=== PATIENT | male | born 1985 | race Caucasian/White ===

== ENCOUNTER 2019-04-24 22:50 | Emergency (ER) | payer SELFPAY ==
[2019-04-25] MEDS ORDERED: hydrOXYzine HCl 25 MG TAB ONE (00:56)
--- NOTE | 2019-04-25 01:11 | ER ---
Nurse's Notes [facility] Name: Kal Carpenter Age: 34 yrs Sex: Male : 1985 Arrival Date: 04/24/2019 Time: 22:51 Bed 15 Private MD: Diagnosis: Presentation: 04/24 23:08 Presenting complaint: Patient states: i feel weird and shaky for months now. feels like rv there is something crawling on me, and I am having some delusions and hallucinations like shadows. denies any pain. Transition of care: patient was not received from another setting of care. Onset of symptoms was March 2019. Risk Assessment: Do you want to hurt yourself or someone else? Patient reports no desire to harm self or others. Initial Sepsis Screen: Does the patient meet any 2 criteria? No. Patient's initial sepsis screen is negative. Does the patient have a suspected source of infection? No. Patient's initial sepsis screen is negative. Care prior to arrival: None. 23:08 Method Of Arrival: Ambulatory rv 23:08 Acuity: GERMAN 3 rv Triage Assessment: 23:11 General: Appears in no apparent distress. uncomfortable, Behavior is restless. Pain: rv Denies pain. EENT: No signs and/or symptoms were reported regarding the EENT system. Neuro: Level of Consciousness is awake, alert, obeys commands, Oriented to person, place, time, situation. Cardiovascular: Patient's skin is warm and dry. Rhythm is sinus tachycardia. Respiratory: Airway is patent. GI: No signs and/or symptoms were reported involving the gastrointestinal system. : No signs and/or symptoms were reported regarding the genitourinary system. Derm: Skin is intact. Musculoskeletal: No signs and/or symptoms reported regarding the musculoskeletal system. Historical: - Allergies: 23:11 PENICILLINS; rv - Home Meds: 23:11 Adderall XR 30 mg Oral cp24 twice a day [Active]; alprazolam 1 mg Oral tab 1 tab 3 rv times per day [Active]; Hydrocodone-Acetaminophen Oral [Active]; - PMHx: 23:11 ADD/ADHD; Anxiety; chronic back pain; rv - PSHx: 23:11 None; rv - Immunization history:: Adult Immunizations not up to date. - Social history:: Smoking status: Patient uses tobacco products, smokes one pack cigarettes per day. - Ebola Screening: : No symptoms or risks identified at this time. Screenin:12 Abuse screen: Denies threats or abuse. Denies injuries from another. Nutritional rv screening: No deficits noted. Tuberculosis screening: No symptoms or risk factors identified. Fall Risk None identified. Assessment: 23:10 General: Appears in no apparent distress. comfortable, Behavior is calm, cooperative, aa1 appropriate for age, quiet. Pain: Denies pain. Neuro: Level of Consciousness is awake, alert, obeys commands, Oriented to person, place, time, situation, Moves all extremities. Gait is steady. Respiratory: Airway is patent Respiratory effort is even, unlabored, Respiratory pattern is regular, symmetrical. GI: No signs and/or symptoms were reported involving the gastrointestinal system. : No signs and/or symptoms were reported regarding the genitourinary system. EENT: No signs and/or symptoms were reported regarding the EENT system. Derm: Skin is intact, is healthy with good turgor, Skin is pink, warm \T\ dry. redness noted to neck where pt reports he was bitten by something. Musculoskeletal: Circulation, motion, and sensation intact. Capillary refill < 3 seconds. 23:56 Reassessment: Patient appears in no apparent distress at this time. Patient and/or aa1 family updated on plan of care and expected duration. Pain level reassessed. Patient is alert, oriented x 3, equal unlabored respirations, skin warm/dry/pink. Still awaiting initial assessment from [facility]. 04/25 00:55 Reassessment: Pt found to be eloped from exam room. Unable to locate within department, aa1 lobby or parking lot. notified. Vital Signs: 04/24 23:10 BP 170 / 112; Pulse 137; Resp 16; Temp 98.4(O); Pulse Ox 96% on R/A; Weight 90.72 kg; rv Height 6 ft. (182.88 cm); Pain 0/10; 04/25 00:00 BP 144 / 99; Pulse 113; Resp 18; Pulse Ox 100% on R/A; Pain 0/10; aa1 04/24 23:10 Body Mass Index 27.13 (90.72 kg, 182.88 cm) rv ED Course: 04/24 22:51 Patient arrived in ED. ds1 23:10 Triage completed. rv 23:12 Arm band placed on right wrist. Patient placed in the treatment room, on a stretcher, rv on pulse oximetry, Patient notified of wait time. 23:12 Patient has correct armband on for positive identification. Bed in low position. Call rv light in reach. Side rails up X 1. Pulse ox on. NIBP on. 23:56 Ioana Wells RN is Primary Nurse. aa1 04/25 00:06 Dileep Holt MD is Attending Physician. ps1 00:55 No provider procedures requiring assistance completed. Patient did not have IV access aa1 during this emergency room visit. Administered Medications: No medications were administered Outcome: 00:55 Eloped from patient exam room, after seeing physician Time discovered patient gone: aa1 April 25, 2019 at 00:55 01:10 Patient left the ED. aa1 Signatures: Ioana Wells RN RN aa1 Iris Gil ds1 Dileep Holt MD MD ps1 Ken Ponce RN RN rv Corrections: (The following items were deleted from the chart) 04/24 23:16 23:10 BP 170 / 112; Pulse 137bpm; Resp 16bpm; Pulse Ox 96% RA; 90.72 kg; Height 6 ft.; rv BMI: 27.1; Pain 0/10; rv
--- NOTE | 2019-04-25 01:11 | EDPHYS ---
Physician Documentation [facility] Name: Kal Carpenter Age: 34 yrs Sex: Male : 1985 Arrival Date: 04/24/2019 Time: 22:51 Bed 15 Private MD: ED Physician Dileep Holt HPI: 04/25 00:33 This 34 yrs old Male presents to ER via Ambulatory with complaints of Shaky, ps1 Feels like something biting on him. 00:33 patient states that he recently used drugs and now is complaining of being bit by ps1 insects. No fever. . Historical: - Allergies: 04/24 23:11 PENICILLINS; rv - Home Meds: 23:11 Adderall XR 30 mg Oral cp24 twice a day [Active]; alprazolam 1 mg Oral tab 1 tab 3 rv times per day [Active]; Hydrocodone-Acetaminophen Oral [Active]; - PMHx: 23:11 ADD/ADHD; Anxiety; chronic back pain; rv - PSHx: 23:11 None; rv - Immunization history:: Adult Immunizations not up to date. - Social history:: Smoking status: Patient uses tobacco products, smokes one pack cigarettes per day. - Ebola Screening: : No symptoms or risks identified at this time. ROS: 04/25 01:14 Constitutional: Negative for fever, chills, and weight loss, Eyes: Negative for injury, ps1 pain, redness, and discharge, Cardiovascular: Negative for chest pain, palpitations, and edema, Respiratory: Negative for shortness of breath, cough, wheezing, and pleuritic chest pain, Abdomen/GI: Negative for abdominal pain, nausea, vomiting, diarrhea, and constipation, MS/Extremity: Negative for injury and deformity. Skin: Positive for itching. Exam: 01:14 Constitutional: This is a well developed, well nourished patient who is awake, alert, ps1 and in no acute distress. Head/Face: Normocephalic, atraumatic. Eyes: Pupils equal round and reactive to light, extra-ocular motions intact. Lids and lashes normal. Conjunctiva and sclera are non-icteric and not injected. Chest/axilla: Normal chest wall appearance and motion. Nontender with no deformity. No lesions are appreciated. Cardiovascular: Regular rate and rhythm. No gallops, murmurs, or rubs. Normal PMI, no JVD. No pulse deficits. Respiratory: Lungs have equal breath sounds bilaterally, clear to auscultation and percussion. No rales, rhonchi or wheezes noted. No increased work of breathing, no retractions or nasal flaring. Abdomen/GI: Soft, non-tender, with normal bowel sounds. No distension or tympany. No guarding or rebound. No evidence of tenderness throughout. Skin: Warm, dry with normal turgor. Normal color with no rashes, no lesions, and no evidence of cellulitis. MS/ Extremity: Pulses equal, no cyanosis. Neurovascular intact. Full, normal range of motion. 01:14 Neuro: Orientation: is normal, Mentation: is normal, patient able to answer questions appropriately. . Vital Signs: 04/24 23:10 BP 170 / 112; Pulse 137; Resp 16; Temp 98.4(O); Pulse Ox 96% on R/A; Weight 90.72 kg; rv Height 6 ft. (182.88 cm); Pain 0/10; 04/25 00:00 BP 144 / 99; Pulse 113; Resp 18; Pulse Ox 100% on R/A; Pain 0/10; aa1 04/24 23:10 Body Mass Index 27.13 (90.72 kg, 182.88 cm) rv MDM: 01:16 Patient medically screened. ps1 Administered Medications: No medications were administered Disposition: 04/25/19 01:10 Patient left the facility after being seen by provider. - Patient left due to unknown. Signatures: Dispatcher [employer] Ioana James RN RN aa1 Dileep Holt MD MD ps1 Ken Ponce RN RN rv
[2019-04-25 01:33] VITALS: TEMP 98.4
[2019-04-25 01:34] VITALS: BP 144/99; O2SAT 100
== END 2019-04-25 01:10 | disposition left against medical advice (07) ==
LOC: ER 22:50
DX: L29.9 Pruritus, unspecified (principal); F17.210 Nicotine dependence, cigarettes, uncomplicated; F41.9 Anxiety disorder, unspecified; F90.9 Attention-deficit hyperactivity disorder, unspecified type; Z88.0 Allergy status to penicillin
CPT/HCPCS: 99284

== ENCOUNTER 2019-06-06 14:29 | Emergency (ER) | payer SELFPAY ==
[2019-06-06] MEDS ORDERED: NA CHLORIDE 0.9% 1,000 ML ONE ×2 (14:42→16:33)
[2019-06-06] MEDS ORDERED: DIAZEPAM 10 MG/2 ML INJ SYRINGE ONE ×2 (14:42→16:33)
[2019-06-06 15:02] LABS: Absolute Lymphocytes (CBC) 1.5 K/uL (0.7-4.9); Basophils % 0.2 % (0-1.3); Hematocrit 44.7 % (39.6-49.0); Lymphocytes % 18.6 % (15.3-44.8); MPV 9.1 fL (7.6-11.3); RBC Red Blood Cell Count 5.13 M/uL (4.33-5.43)
[2019-06-06 16:23] LABS: Potassium 3.9 mmol/L (3.5-5.1)
--- NOTE | 2019-06-06 17:29 | ER ---
Nurse's Notes [facility] Name: Kal Carpenter Age: 34 yrs Sex: Male : 1985 Arrival Date: 06/06/2019 Time: 14:32 Bed 8 Private MD: Diagnosis: Dehydration;Alcohol dependence with withdrawal, uncomplicated;Adverse effect of other psychostimulants Presentation: 06/06 14:27 Presenting complaint: EMS states: called out for a wellfare check by [facility], stated that sv pt was hallucinating and had taken 2 Adderral today and he was tachycardic. Pt was at [facility] making a police reports for someone breaking into his house. BP 170/100 HR-145, BS-135. Transition of care: patient was not received from another setting of care. Onset of symptoms was June 06, 2019. Risk Assessment: Do you want to hurt yourself or someone else? Patient reports no desire to harm self or others. Initial Sepsis Screen: Does the patient meet any 2 criteria? HR > 90 bpm. No. Patient's initial sepsis screen is negative. Does the patient have a suspected source of infection? No. Patient's initial sepsis screen is negative. 14:27 Method Of Arrival: EMS: [facility] sv 14:27 Acuity: GERMAN 2 sv 14:33 Care prior to arrival:. tw2 Triage Assessment: 14:30 General: Appears in no apparent distress. comfortable, well groomed, well developed, sv Behavior is calm, cooperative, appropriate for age, quiet. Pain: Denies pain. Neuro: Level of Consciousness is awake, alert, obeys commands, Oriented to person, place, time, situation, Moves all extremities. Full function Gait is steady, Speech is normal. Cardiovascular: Denies chest pain, lightheadedness, palpitations, shortness of breath, Patient's skin is warm and dry. Rhythm is sinus tachycardia. Respiratory: Airway is patent Respiratory effort is even, unlabored, Respiratory pattern is regular, symmetrical. Derm: Skin is intact, Skin is pink, warm \T\ dry. Skin temperature is warm. Musculoskeletal: Range of motion: intact in all extremities. Historical: - Allergies: 14:34 PENICILLINS; tw2 - Home Meds: 14:34 Adderall XR 30 mg Oral cp24 twice a day [Active]; alprazolam 1 mg Oral tab 1 tab 3 tw2 times per day [Active]; Hydrocodone-Acetaminophen Oral [Active]; - PMHx: 14:34 ADD/ADHD; Anxiety; chronic back pain; tw2 - PSHx: 14:34 None; tw2 - Immunization history:: Adult Immunizations. - Social history:: Smoking status: . - Ebola Screening: : Patient denies travel to an Ebola-affected area in the 21 days before illness onset. - Family history:: not pertinent. - Hospitalizations: : No recent hospitalization is reported. Screenin:32 Abuse screen: Denies threats or abuse. Nutritional screening: No deficits noted. tw2 Tuberculosis screening: No symptoms or risk factors identified. Fall Risk None identified. Assessment: 14:56 Reassessment: Patient appears in no apparent distress at this time. No changes from sv previously documented assessment. Patient and/or family updated on plan of care and expected duration. Pain level reassessed. Patient is alert, oriented x 3, equal unlabored respirations, skin warm/dry/pink. Pt reports having visual hallucinations where he sees like a haze or tracers, reports he has had them in the past and they just come and go. 15:51 Reassessment: Aniya from inside lab at the bedside to obtain recollect. sv 16:35 Reassessment: Patient appears in no apparent distress at this time. No changes from tw2 previously documented assessment. Patient and/or family updated on plan of care and expected duration. Pain level reassessed. Patient is alert, oriented x 3, equal unlabored respirations, skin warm/dry/pink. 16:38 Reassessment: Patient appears in no apparent distress at this time. No changes from sv previously documented assessment. Patient and/or family updated on plan of care and expected duration. Pain level reassessed. Patient is alert, oriented x 3, equal unlabored respirations, skin warm/dry/pink. 17:48 Reassessment: Patient appears in no apparent distress at this time. No changes from sv previously documented assessment. Patient and/or family updated on plan of care and expected duration. Pain level reassessed. Patient is alert, oriented x 3, equal unlabored respirations, skin warm/dry/pink. Vital Signs: 14:27 BP 136 / 111; Pulse 141; Resp 16; Temp 97.8; Pulse Ox 100% ; Weight 94.35 kg; Height 6 sv ft. 2 in. (187.96 cm); Pain 0/10; 15:04 BP 131 / 92; Pulse 140; Resp 20; Pulse Ox 99% ; sv 15:35 BP 134 / 98; Pulse 128; Resp 21; Pulse Ox 100% ; sv 16:35 BP 126 / 101; Pulse 122; Resp 21; Pulse Ox 100% on R/A; tw2 17:23 BP 127 / 92; Pulse 104; rn 17:32 BP 127 / 92; Pulse 102; Resp 15; Pulse Ox 99% ; sv 14:27 Body Mass Index 26.71 (94.35 kg, 187.96 cm) sv ED Course: 14:32 Patient arrived in ED. ss 14:32 Bed in low position. Call light in reach. dependency case manager on. Pulse ox on. NIBP on. tw2 provider at bedside at this time. 14:33 Arm band placed on. tw2 14:34 Darlyn Chawla RN is Primary Nurse. sv 14:35 Baldomero Villavicencio MD is Attending Physician. rn 14:43 Triage completed. sv 14:45 Inserted saline lock: 18 gauge in right antecubital area, using aseptic technique. sv Blood collected. Flushed right antecubital with 5 ml normal saline. 14:53 CBC with Diff Sent. sv 15:16 EKG done, by printing technician. reviewed by Baldomero Villavicencio MD. sm3 15:54 Lab(s) recollected, by rags laborer, sent to lab. sv 17:48 No provider procedures requiring assistance completed. IV discontinued, intact, ss bleeding controlled, No redness/swelling at site. Pressure dressing applied. 17:48 No provider procedures requiring assistance completed. IV discontinued, intact, sv bleeding controlled, No redness/swelling at site. Pressure dressing applied. Administered Medications: 14:52 Drug: Valium 10 mg Route: IVP; Site: right antecubital; sv 15:20 Follow up: Response: No adverse reaction sv 14:53 Drug: NS 0.9% 1000 ml Route: IV; Rate: 1000 ml; Site: right antecubital; sv 16:00 Follow up: Response: No adverse reaction; IV Status: Completed infusion; IV Intake: sv 1000ml 16:37 Drug: Valium 10 mg Route: IVP; Site: right antecubital; sv 17:30 Follow up: Response: No adverse reaction sv 16:37 Drug: NS 0.9% 1000 ml Route: IV; Rate: 1000 ml; Site: right antecubital; sv 17:30 Follow up: Response: No adverse reaction; IV Status: Completed infusion; IV Intake: sv 1000ml Intake: 16:00 IV: 1000ml; Total: 1000ml. sv 17:30 IV: 1000ml; Total: 2000ml. sv Outcome: 17:28 Discharge ordered by . rn 17:48 Discharged to home ambulatory. sv 17:48 Condition: stable 17:48 Discharge instructions given to patient, Instructed on discharge instructions, follow up and referral plans. Demonstrated understanding of instructions, follow-up care. 17:48 Discharged to home ambulatory. ss 17:48 Condition: good 17:48 Discharge instructions given to patient, Instructed on discharge instructions, follow up and referral plans. Demonstrated understanding of instructions, follow-up care. 17:49 Patient left the ED. ss Signatures: Darlyn Chawla RN RN Baldomero Villavicencio MD MD rn Smirch, Shelby, RN RN Shiloh Julio RN RN [facility] Geni Cordero 3
--- NOTE | 2019-06-06 17:29 | EDPHYS ---
Physician Documentation [facility] Name: Kal Carpenter Age: 34 yrs Sex: Male : 1985 Arrival Date: 06/06/2019 Time: 14:32 Bed 8 Private MD: ED Physician Baldomero Villavicencio HPI: 06/06 16:35 This 34 yrs old Male presents to ER via EMS with complaints of Tachycardia. rn 16:35 The patient presents with a history of heart racing. Context: The symptoms occur at rn rest. Onset: The symptoms/episode began/occurred at an unknown time. Modifying factors: The symptoms are aggravated by prescription medication, adderall. Severity of symptoms: At their worst the symptoms were mild in the emergency department the symptoms are unchanged. It is unknown whether or not the patient has had similar symptoms in the past. Reports takes 2 adderall daily, today took 2 like always does, reports went to police to file report, and noted to be acting strange, heart rate elevated, recommended to come to ER. Patient states feels "off" but doesn't feel heart racing. Denies other drug use. Not intentional overdose or to harm himself. reports chronic hallucinations but not command and denies suicidal/homicidal ideation. reports also daily drinker, last drink yesterday. . Historical: - Allergies: 14:34 PENICILLINS; tw2 - Home Meds: 14:34 Adderall XR 30 mg Oral cp24 twice a day [Active]; alprazolam 1 mg Oral tab 1 tab 3 tw2 times per day [Active]; Hydrocodone-Acetaminophen Oral [Active]; - PMHx: 14:34 ADD/ADHD; Anxiety; chronic back pain; tw2 - PSHx: 14:34 None; tw2 - Immunization history:: Adult Immunizations. - Social history:: Smoking status: . - Ebola Screening: : Patient denies travel to an Ebola-affected area in the 21 days before illness onset. - Family history:: not pertinent. - Hospitalizations: : No recent hospitalization is reported. ROS: 16:35 Constitutional: Negative for fever, chills, and weight loss, Eyes: Negative for injury, rn pain, redness, and discharge, Cardiovascular: Negative for chest pain, and edema, Respiratory: Negative for shortness of breath, cough, wheezing, and pleuritic chest pain, Abdomen/GI: Negative for abdominal pain, nausea, vomiting, diarrhea, and constipation, MS/Extremity: Negative for injury and deformity, Skin: Negative for injury, rash, and discoloration, Neuro: Negative for headache, numbness, tingling, and seizure, Psych: Negative for depression, suicide ideation, homicidal ideation Exam: 16:35 Constitutional: This is a well developed, well nourished patient who is awake, alert, rn and in no acute distress. Head/Face: Normocephalic, atraumatic. ENT: dry MM Neck: Trachea midline, no thyromegaly or masses palpated, and no cervical lymphadenopathy. Supple, full range of motion without nuchal rigidity, or vertebral point tenderness. No Meningismus. Cardiovascular: Tachycardic, regular, no murmur Respiratory: Lungs have equal breath sounds bilaterally, clear to auscultation. No increased work of breathing, no retractions or nasal flaring. Abdomen/GI: soft, non-tender MS/ Extremity: Pulses equal, no cyanosis. Neurovascular intact. Full, normal range of motion. Equal circumference. Neuro: Awake and alert, GCS 15, oriented to person, place, time, and situation. Cranial nerves II-XII grossly intact. Motor strength 5/5 in all extremities. Sensory grossly intact. Cerebellar exam normal. Vital Signs: 14:27 BP 136 / 111; Pulse 141; Resp 16; Temp 97.8; Pulse Ox 100% ; Weight 94.35 kg; Height 6 sv ft. 2 in. (187.96 cm); Pain 0/10; 15:04 BP 131 / 92; Pulse 140; Resp 20; Pulse Ox 99% ; sv 15:35 BP 134 / 98; Pulse 128; Resp 21; Pulse Ox 100% ; sv 16:35 BP 126 / 101; Pulse 122; Resp 21; Pulse Ox 100% on R/A; tw2 17:23 BP 127 / 92; Pulse 104; rn 17:32 BP 127 / 92; Pulse 102; Resp 15; Pulse Ox 99% ; sv 14:27 Body Mass Index 26.71 (94.35 kg, 187.96 cm) sv MDM: 14:35 Patient medically screened. rn 17:26 Differential diagnosis: arrythmia, dehydration, stress disorder, alcohol withdrawal, rn dehydration, stimulant use. Data reviewed: vital signs, nurses notes, lab test result(s), EKG, and as a result, I will discharge patient. Counseling: I had a detailed discussion with the patient and/or guardian regarding: the historical points, exam findings, and any diagnostic results supporting the discharge/admit diagnosis, lab results, radiology results, the need for outpatient follow up, to return to the emergency department if symptoms worsen or persist or if there are any questions or concerns that arise at home. Response to treatment: the patient's symptoms have markedly improved after treatment, patient is well hydrated. and as a result, I will discharge patient. Special discussion: I discussed with the patient/guardian in detail that at this point there is no indication for admission to the hospital. It is understood, however, that if the symptoms persist or worsen the patient needs to return immediately for re-evaluation. ED course: Pt feels better, most likely combination of dehydration/alcohol withdrawal/stimulant use. Improved with valium and fluids, will dc home. . 06/06 14:37 Order name: CBC with Diff rn 06/06 14:37 Order name: Basic Metabolic Panel; Complete Time: 17:29 rn 06/06 14:37 Order name: CBC with Automated Diff; Complete Time: 17:29 EDMS 06/06 14:37 Order name: IV Start; Complete Time: 14:53 rn 06/06 14:37 Order name: EKG; Complete Time: 14:38 rn 06/06 14:37 Order name: EKG - Nurse/Tech; Complete Time: 14:42 rn 06/06 14:38 Order name: EKG Electrocardiogram; Complete Time: 14:53 EDOK 06/06 15:14 Order name: Misc. Order: recollect green and blue top; Complete Time: 15:51 la1 06/06 15:46 Order name: Labs - recollect needed; Complete Time: 15:54 eb Administered Medications: 14:52 Drug: Valium 10 mg Route: IVP; Site: right antecubital; sv 15:20 Follow up: Response: No adverse reaction sv 14:53 Drug: NS 0.9% 1000 ml Route: IV; Rate: 1000 ml; Site: right antecubital; sv 16:00 Follow up: Response: No adverse reaction; IV Status: Completed infusion; IV Intake: sv 1000ml 16:37 Drug: Valium 10 mg Route: IVP; Site: right antecubital; sv 17:30 Follow up: Response: No adverse reaction sv 16:37 Drug: NS 0.9% 1000 ml Route: IV; Rate: 1000 ml; Site: right antecubital; sv 17:30 Follow up: Response: No adverse reaction; IV Status: Completed infusion; IV Intake: sv 1000ml Disposition: 06/06/19 17:28 Discharged to Home. Impression: Dehydration, Alcohol dependence with withdrawal, uncomplicated, Adverse effect of other psychostimulants. - Condition is Stable. - Discharge Instructions: Alcohol Withdrawal, Dehydration, Adult. - Medication Reconciliation Form, Thank You Letter, Antibiotic Education, Prescription Opioid Use form. - Follow up: Private Physician; When: As needed; Reason: Recheck today's complaints, Re-evaluation by your physician. - Problem is new. - Symptoms have improved. Signatures: Dispatcher [employer] EDMS Darlyn Chawla RN RN Baldomero Villavicencio MD MD rn Smirch, Shelby, RN RN Christopher Cotter RN RN la1 Shiloh Julio RN RN 2 Ermelinda Burkett Corrections: (The following items were deleted from the chart) 17:49 17:28 06/06/2019 17:28 Discharged to Home. Impression: Dehydration; Alcohol dependence ss with withdrawal, uncomplicated; Adverse effect of other psychostimulants. Condition is Stable. Forms are Medication Reconciliation Form, Thank You Letter, Antibiotic Education, Prescription Opioid Use. Follow up: Private Physician; When: As needed; Reason: Recheck today's complaints, Re-evaluation by your physician. Problem is new. Symptoms have improved. rn
[2019-06-06 19:14] VITALS: BP 127/92
[2019-06-06 19:15] VITALS: O2SAT 99
--- NOTE | 2019-06-07 11:59 | EKG ---
Test Date: 2019-06-06 Test Time: 14:43:36 Commercial Development Manager: GABBIE MEASUREMENT RESULTS: Intervals: Rate: 126 NM: 124 QRSD: 78 QT: 306 QTc: 443 [place]: P: 59 NM: 124 QRS: 61 T: 66 INTERPRETIVE STATEMENTS: Sinus tachycardia Otherwise normal ECG No previous ECG available for comparison Electronically Signed On 06-07-19 11:57:08 PANCAKE PROFESSIONAL by Andrew Salvador
== END 2019-06-06 17:49 | disposition home or self-care (01) ==
LOC: ER 14:29
DX: E86.0 Dehydration (principal); F10.230 Alcohol dependence with withdrawal, uncomplicated; T43.695A Adverse effect of other psychostimulants, initial encounter; F90.9 Attention-deficit hyperactivity disorder, unspecified type; F41.9 Anxiety disorder, unspecified; Z88.0 Allergy status to penicillin
CPT/HCPCS: 36415; 80048; 85025; 93005; 96361; 96374; 99284; J3360; J7030

== ENCOUNTER 2019-07-23 16:49 | Emergency (ER) | payer SELFPAY ==
[2019-07-23 17:40] LABS: Absolute Lymphocytes (CBC) 1.8 K/uL (0.7-4.9); Basophils % 0.5 % (0-1.3); Hematocrit 47.8 % (39.6-49.0); Lymphocytes % 31.9 % (15.3-44.8); MPV 8.5 fL (7.6-11.3); RBC Red Blood Cell Count 5.48 M/uL (4.33-5.43)
[2019-07-23 17:44] LABS: Protime INR 1.11
[2019-07-23 17:53] LABS: Barbiturates NEGATIVE (NEGATIVE); Benzodiazepines POSITIVE (NEGATIVE); Cocaine NEGATIVE (NEGATIVE); Methadone NEGATIVE (NEGATIVE); Opiates NEGATIVE (NEGATIVE); Phencyclidine NEGATIVE (NEGATIVE); THC Cannibis NEGATIVE (NEGATIVE)
[2019-07-23 17:54] LABS: METHAMPHETAM POSITIVE (NEGATIVE)
[2019-07-23 18:03] LABS: Urine Blood NEGATIVE (NEG); Urine Glucose NEGATIVE (NEG); Urine Protein NEGATIVE (NEG); Urine Specific Gravity 1.025 (1.005-1.030)
[2019-07-23 18:06] LABS: ALT/SGPT 30 U/L (12-78); AST/SGOT 11 U/L (15-37); Albumin 4.7 g/dL (3.4-5.0); Alkaline Phosphatase 80 U/L (45-117); BUN Blood Urea Nitrogen 11 mg/dL (7-18); Bicarbonate 28 mmol/L (21-32); Bilirubin Direct 0.2 mg/dL (0-0.2); Glucose Level 114 mg/dL (74-106); Potassium 3.4 mmol/L (3.5-5.1); Protein, Total 8.6 g/dL (6.4-8.2); Sodium Level 141 mmol/L (136-145)
--- NOTE | 2019-07-24 01:20 | ER ---
Nurse's Notes [facility] Name: Kal Carpenter Age: 34 yrs Sex: Male : 1985 Arrival Date: 07/23/2019 Time: 16:52 Bed 17 Private MD: None, None Diagnosis: Homicidal ideations Presentation: 07/23 17:05 Presenting complaint: Patient states: "I've been hearing and seeing things that are not aa5 there". Pt also reports shortness of breath. Denies recent illness, denies cough. Transition of care: patient was not received from another setting of care. Onset of symptoms was July 2019. Risk Assessment: Do you want to hurt yourself or someone else? Patient reports no desire to harm self or others. Initial Sepsis Screen: Does the patient meet any 2 criteria? HR > 90 bpm. Does the patient have a suspected source of infection? No. Patient's initial sepsis screen is negative. Care prior to arrival: None. 17:05 Acuity: GERMAN 3 aa5 17:05 Method Of Arrival: Ambulatory aa5 Historical: - Allergies: 17:07 PENICILLINS; aa5 - Home Meds: 17:07 Adderall XR 30 mg Oral cp24 twice a day [Active]; Xanax 1 mg Oral tab twice a day aa5 [Active]; - PMHx: 17:07 ADD/ADHD; Anxiety; chronic back pain; aa5 - PSHx: 17:07 None; aa5 - Immunization history:: Flu vaccine is not up to date. - Social history:: Smoking status: Patient/guardian denies using tobacco, Patient/guardian denies using street drugs. - Ebola Screening: : No symptoms or risks identified at this time. Screenin:53 Abuse screen: Denies threats or abuse. Denies injuries from another. Nutritional aj1 screening: No deficits noted. Tuberculosis screening: No symptoms or risk factors identified. Assessment: 17:53 General: Appears in no apparent distress. uncomfortable, Behavior is calm, cooperative, aj1 appropriate for age. Pain: Denies pain. Neuro: Level of Consciousness is awake, alert, obeys commands, Oriented to person, place, time, situation. Cardiovascular: Patient's skin is warm and dry. Respiratory: Airway is patent Respiratory effort is even, unlabored, Respiratory pattern is regular, symmetrical. GI: No signs and/or symptoms were reported involving the gastrointestinal system. : No signs and/or symptoms were reported regarding the genitourinary system. EENT: No signs and/or symptoms were reported regarding the EENT system. Derm: No signs and/or symptoms reported regarding the dermatologic system. Skin is pink, warm \\T\\ dry. normal. Musculoskeletal: No signs and/or symptoms reported regarding the musculoskeletal system. Circulation, motion, and sensation intact. 18:33 Reassessment: Patient appears in no apparent distress at this time. No changes from aj1 previously documented assessment. Patient and/or family updated on plan of care and expected duration. Pain level reassessed. Patient is alert, oriented x 3, equal unlabored respirations, skin warm/dry/pink. 19:34 Reassessment: Patient appears in no apparent distress at this time. No changes from aj1 previously documented assessment. Patient and/or family updated on plan of care and expected duration. Pain level reassessed. Patient is alert, oriented x 3, equal unlabored respirations, skin warm/dry/pink. 20:30 Reassessment: Patient and/or family updated on plan of care and expected duration. Pain aj1 level reassessed. General: Appears in no apparent distress. comfortable, Behavior is calm, cooperative, appropriate for age. Pain: Denies pain. Neuro: Level of Consciousness is awake, alert, obeys commands, Oriented to person, place, time, situation. Cardiovascular: Patient's skin is warm and dry. Respiratory: Airway is patent Respiratory effort is even, unlabored, Respiratory pattern is regular, symmetrical. GI: No signs and/or symptoms were reported involving the gastrointestinal system. : No signs and/or symptoms were reported regarding the genitourinary system. EENT: No signs and/or symptoms were reported regarding the EENT system. Derm: No signs and/or symptoms reported regarding the dermatologic system. Skin is pink, warm \\T\\ dry. normal. Musculoskeletal: No signs and/or symptoms reported regarding the musculoskeletal system. Circulation, motion, and sensation intact. 21:42 Reassessment: Patient appears in no apparent distress at this time. No changes from aj1 previously documented assessment. Patient and/or family updated on plan of care and expected duration. Pain level reassessed. Patient is alert, oriented x 3, equal unlabored respirations, skin warm/dry/pink. 22:34 Reassessment: patient wanted to leave the ER. Jose talked to him and was able to lead rv the patient back to the examination room. 23:30 Reassessment: mental health officer is evaluating the patient. rv 07/24 01:00 Reassessment: Patient appears in no apparent distress at this time. Patient and/or family updated on plan of care and expected duration. Pain level reassessed. Patient is alert, oriented x 3, equal unlabored respirations, skin warm/dry/pink. Pt checked for personal belonging, one pocket knife was recovered for safekeeping. 02:10 Reassessment: Patient appears in no apparent distress at this time. No changes from previously documented assessment. Patient and/or family updated on plan of care and expected duration. Pain level reassessed. Patient is alert, oriented x 3, equal unlabored respirations, skin warm/dry/pink. Pt sleeping well no signs of distress noted. 03:20 Reassessment: Patient appears in no apparent distress at this time. No changes from previously documented assessment. Patient and/or family updated on plan of care and expected duration. Pain level reassessed. Patient is alert, oriented x 3, equal unlabored respirations, skin warm/dry/pink. Pt sleeping well no signs of distress noted. 04:46 Reassessment: Patient appears in no apparent distress at this time. No changes from previously documented assessment. Patient and/or family updated on plan of care and expected duration. Pain level reassessed. Patient is alert, oriented x 3, equal unlabored respirations, skin warm/dry/pink. Pt sleeping well no signs of distress noted. Nurse to Nurse with Fr[facility] from [facility]. 07:15 Reassessment: Patient appears in no apparent distress at this time. Patient and/or em family updated on plan of care and expected duration. Pain level reassessed. Patient is alert, oriented x 3, equal unlabored respirations, skin warm/dry/pink. pt turned over knife he had on self, knife labeled with pt ID and give to security, pt given instructions to hop picker knife after evaluated by MH. 08:20 Reassessment: Patient appears in no apparent distress at this time. report given to em EMS. Vital Signs: 07/23 17:07 BP 166 / 110; Pulse 128; Resp 18 S; Temp 98.3(O); Pulse Ox 99% on R/A; Weight 90.72 kg aa5 (R); Height 6 ft. 2 in. (187.96 cm) (R); Pain 0/10; 17:47 BP 139 / 98; Pulse 112; Resp 18; Pulse Ox 100% on R/A; aj1 18:34 BP 129 / 90; Pulse 114; Resp 20; Pulse Ox 100% on R/A; aj1 19:34 BP 131 / 92; Pulse 96; Resp 18; Pulse Ox 100% on R/A; aj1 21:12 BP 124 / 88; Pulse 101; Resp 20; Pulse Ox 100% on R/A; aj1 07/24 00:00 BP 127 / 86; Pulse 98; Resp 18; Pulse Ox 99% on R/A; rv 07/23 17:07 Body Mass Index 25.68 (90.72 kg, 187.96 cm) aa5 ED Course: 07/23 16:52 Patient arrived in ED. mr 16:52 None, None is Private Physician. mr 17:05 Arm band placed on. aa5 17:06 Triage completed. aa5 17:20 Sally Greenwood, RN is Primary Nurse. aj1 17:25 Initial lab(s) drawn, by me, sent to lab. Urine collected: clean catch specimen, clear, jp3 maia colored, Legal drug screen obtained per protocol. Inserted saline lock: 20 gauge in right antecubital area, using aseptic technique. Blood collected. 17:29 Patient maintains SpO2 saturation greater than 95% on room air. jp3 17:30 Bed in low position. Call light in reach. Side rails up X 1. Verbal reassurance given. jp3 Pulse ox on. NIBP on. 17:37 Elian Gómez MD is Attending Physician. tw4 17:42 EKG done, by ED staff, reviewed by Elian Gómez MD. jp3 17:53 No provider procedures requiring assistance completed. aj1 22:03 Report given to DEE Delgado. aj1 07/24 03:45 Report received from Carlton Ponce RN. 05:36 Attending Physician role handed off by Elian Gómez MD rn 05:36 Baldomero Villavicencio MD is Attending Physician. rn 08:28 IV discontinued, intact, bleeding controlled, No redness/swelling at site. Pressure em dressing applied. Administered Medications: No medications were administered Outcome: 01:19 ER care complete, transfer ordered by . rn 08:27 Transferred by ground EMS Transfer form completed. Note: [facility] em 08:27 Condition: good 08:27 Instructed on the need for transfer, Demonstrated understanding of instructions. 08:29 Patient left the ED. em Signatures: Sally Greenwood RN RN aj1 Ciera Jackson mr Andrea Austin RN RN Baldomero Petersen MD MD rn Calderon, Audri, RN RN aa5 Marianne Birch Terrence, MD MD tw4 Ken Ponce RN RN Juan Coto jp3 Corrections: (The following items were deleted from the chart) 04:46 04:41 Reassessment: [facility]
--- NOTE | 2019-07-24 01:20 | EDPHYS ---
Physician Documentation [facility] Name: Kal Carpenter Age: 34 yrs Sex: Male : 1985 Arrival Date: 07/23/2019 Time: 16:52 Bed 17 Private MD: None, None ED Physician Baldomero Villavicencio HPI: 07/23 21:30 This 34 yrs old Male presents to ER via Ambulatory with complaints of tw4 Hallucinations. 21:30 The patient presents to the emergency department with anxiety, over unknown tw4 circumstances, homicidal ideation, the patient has harmed or wants to harm a friend, Plan? wants to shoot. 21:31 The patient presents to the emergency department with psychosis, has experienced tw4 auditory hallucinations, has experienced visual hallucinations. 21:31 Onset: The symptoms/episode began/occurred last week. Past psychiatric history: Prior tw4 diagnosis: no previous psychiatric diagnosis known. Past psychiatric history: Prior diagnosis: addiction history. Associated signs and symptoms: The patient has no apparent associated signs or symptoms. The patient has not experienced similar symptoms in the past. Historical: - Allergies: 17:07 PENICILLINS; aa5 - Home Meds: 17:07 Adderall XR 30 mg Oral cp24 twice a day [Active]; Xanax 1 mg Oral tab twice a day aa5 [Active]; - PMHx: 17:07 ADD/ADHD; Anxiety; chronic back pain; aa5 - PSHx: 17:07 None; aa5 - Immunization history:: Flu vaccine is not up to date. - Social history:: Smoking status: Patient/guardian denies using tobacco, Patient/guardian denies using street drugs. - Ebola Screening: : No symptoms or risks identified at this time. ROS: 21:31 Constitutional: Negative for fever, chills, and weight loss, Eyes: Negative for injury, tw4 pain, redness, and discharge, Cardiovascular: Negative for chest pain, palpitations, and edema, Respiratory: Negative for shortness of breath, cough, wheezing, and pleuritic chest pain, Abdomen/GI: Negative for abdominal pain, nausea, vomiting, diarrhea, and constipation, Back: Negative for injury and pain, MS/Extremity: Negative for injury and deformity, Skin: Negative for injury, rash, and discoloration, Neuro: Negative for headache, weakness, numbness, tingling, and seizure. 21:31 Psych: Positive for anxiety, homicidal ideation, Negative for depression, drug dependence, alcohol dependence. Exam: 21:31 Constitutional: This is a well developed, well nourished patient who is awake, alert, tw4 and in no acute distress. Head/Face: Normocephalic, atraumatic. Chest/axilla: Normal chest wall appearance and motion. Nontender with no deformity. No lesions are appreciated. Cardiovascular: Regular rate and rhythm with a normal S1 and S2. No gallops, murmurs, or rubs. Normal PMI, no JVD. No pulse deficits. Respiratory: Lungs have equal breath sounds bilaterally, clear to auscultation and percussion. No rales, rhonchi or wheezes noted. No increased work of breathing, no retractions or nasal flaring. Abdomen/GI: Soft, non-tender, with normal bowel sounds. No distension or tympany. No guarding or rebound. No evidence of tenderness throughout. Back: No spinal tenderness. No costovertebral tenderness. Full range of motion. MS/ Extremity: Pulses equal, no cyanosis. Neurovascular intact. Full, normal range of motion. Neuro: Awake and alert, GCS 15, oriented to person, place, time, and situation. Cranial nerves II-XII grossly intact. Motor strength 5/5 in all extremities. Sensory grossly intact. Cerebellar exam normal. Normal gait. 21:31 Psych: Behavior/mood is pleasant, Affect is flat, Oriented to person, place, time, Patient having thoughts of homicide. Homicidal plan is to shoot friend with a gun Judgement / Insight is impaired. Vital Signs: 17:07 BP 166 / 110; Pulse 128; Resp 18 S; Temp 98.3(O); Pulse Ox 99% on R/A; Weight 90.72 kg aa5 (R); Height 6 ft. 2 in. (187.96 cm) (R); Pain 0/10; 17:47 BP 139 / 98; Pulse 112; Resp 18; Pulse Ox 100% on R/A; aj1 18:34 BP 129 / 90; Pulse 114; Resp 20; Pulse Ox 100% on R/A; aj1 19:34 BP 131 / 92; Pulse 96; Resp 18; Pulse Ox 100% on R/A; aj1 21:12 BP 124 / 88; Pulse 101; Resp 20; Pulse Ox 100% on R/A; aj1 07/24 00:00 BP 127 / 86; Pulse 98; Resp 18; Pulse Ox 99% on R/A; rv 07/23 17:07 Body Mass Index 25.68 (90.72 kg, 187.96 cm) aa5 MDM: 07/23 17:37 Patient medically screened. tw4 21:33 Differential diagnosis: drug withdrawal. acute psychotic break, depression, psychosis tw4 secondary to non-compliance. Data reviewed: vital signs, nurses notes. Data interpreted: hall monitor: not applicable for this patient encounter. Pulse oximetry: Interpretation: normal. Counseling: I had a detailed discussion with the patient and/or guardian regarding: the historical points, exam findings, and any diagnostic results supporting the discharge/admit diagnosis, lab results. Awaiting: transfer to another facility. 07/24 00:49 ED course: Mental health deputy arrived, filled out HUY, was evaluated by [facility] er rn and recommended transfer for homicidal ideations. Pleasant here, stable vitals. . 07/23 17:17 Order name: Acetaminophen; Complete Time: 18:33 [facility] 07/23 17:17 Order name: Basic Metabolic Panel; Complete Time: 18:33 [facility] 07/23 17:17 Order name: CBC with Diff; Complete Time: 18:33 [facility] 07/23 17:17 Order name: ETOH Level; Complete Time: 18:33 [facility] 07/23 17:17 Order name: Hepatic Function; Complete Time: 18:33 [facility] 07/23 17:17 Order name: PT-INR; Complete Time: 18:33 [facility] 07/23 17:17 Order name: Ptt, Activated; Complete Time: 18:33 [facility] 07/23 17:17 Order name: Salicylate; Complete Time: 00:50 [facility] 07/23 17:17 Order name: Urine Drug Screen; Complete Time: 18:33 [facility] 07/23 17:17 Order name: EKG; Complete Time: 17:18 [facility] 07/23 17:17 Order name: EKG - Nurse/Tech; Complete Time: 17:31 [facility] 07/23 17:17 Order name: IV Saline Lock; Complete Time: 17:31 [facility] 07/23 17:17 Order name: Labs collected and sent; Complete Time: 17:30 [facility] 07/23 17:50 Order name: Urine Dipstick--Ancillary (enter results); Complete Time: 18:33 bd 07/23 17:17 Order name: Urine Dipstick-Ancillary (obtain specimen); Complete Time: 17:30 [facility] Administered Medications: No medications were administered Disposition: 07/24/19 01:19 Transfer ordered to Psych Facility. Diagnosis is Homicidal ideations. - Reason for transfer: Higher level of care. - Accepting physician is Dr. Jones. - Condition is Fair. - Problem is an ongoing problem. - Symptoms are unchanged. Signatures: Dispatcher [employer] EDMS Ravi Casillas PA PA Andrea Joshua, RN Baldomero Erickson MD MD rn Calderon, Audri, RN RN aa5 Elian Gómez MD MD tw4 Corrections: (The following items were deleted from the chart) 05:36 01:19 07/24/2019 01:19 Transfer ordered to Psych Facility. Diagnosis is Homicidal rn ideations. Reason for transfer: Higher level of care. Accepting physician is . Condition is Fair. Problem is an ongoing problem. Symptoms are unchanged. rn 08:29 05:36 07/24/2019 01:19 Transfer ordered to Psych Facility. Diagnosis is Homicidal em ideations. Reason for transfer: Higher level of care. Accepting physician is Dr. Jones. Condition is Fair. Problem is an ongoing problem. Symptoms are unchanged. rn
[2019-07-24 08:44] VITALS: TEMP 98.3
[2019-07-24 08:51] VITALS: BP 127/86; O2SAT 99
--- NOTE | 2019-07-24 14:40 | EKG ---
Test Date: 2019-07-23 Test Time: 17:36:13 Telephone Clerk Telegraph Office: MARQUES MEASUREMENT RESULTS: Intervals: Rate: 113 NE: 130 QRSD: 80 QT: 332 QTc: 455 [place]: P: 65 NE: 130 QRS: 70 T: 66 INTERPRETIVE STATEMENTS: Sinus tachycardia Otherwise normal ECG Compared to ECG 06/06/2019 14:43:36 No significant changes Electronically Signed On 07-24-19 14:39:06 SOLUTIONS ENGINEER by Arthur Hardwick
== END 2019-07-24 08:29 ==
LOC: ER 16:49
DX: R45.850 Homicidal ideations (principal); F90.9 Attention-deficit hyperactivity disorder, unspecified type; F41.9 Anxiety disorder, unspecified; Z88.0 Allergy status to penicillin
CPT/HCPCS: 36415; 80048; 80076; 80307; 80320; 80329; 81003; 85025; 85610; 85730; 93005; 99285

== ENCOUNTER 2020-01-31 20:51 | Emergency (ER) | payer SELFPAY ==
--- OUTSIDE RECORDS SUMMARY | 2020-01-31 20:54 | XMS REPORT | Continuity of Care Document ---
:1985 Author Organization [facility] t Address [address] [place] [address] Care Team Providers Name Role Phone Unavailable Unavailable Unavailable Problems This patient has no known problems. Allergies, Adverse Reactions, Alerts This patient has no known allergies or adverse reactions. Medications This patient has no known medications. Procedures This patient has no known procedures. Results Test Description Test Time Test Comments Results Result [facility] e Comments XR Chest 1 View 2019-08-02 Patient: Linus FLORES 14:27:18 THERESE ROBINS Date/Time08/02/2019 14:19 CSTReason for ExamCoughReportCHEST 1 VIEWCLINICAL INFORMATION: CoughCOMPARISON: NoneFINDINGS:The lungs are well-expanded and clear. No airspace consolidation is seen. No pneumothorax or pleural effusion is present. The cardiac silhouette is normal in size. The bones are grossly intact.IMPRESSION:No acute cardiopulmonary finding.LOCATION: R16 Final Dictated by: MD Pickering Adam FDictated DT/TM: 08/02/2019 2:26 pmSigned by: MD Pickering Adam FSigned (Electronic Signature): 08/02/2019 2:27 pm RPR Qualitative 2019-07-25 12:03:23 Test Item Value Reference Range Interpretation Comme nts RPR Qual (test code = RPR Qual) Non-Reactive Non-Reactive Reactive Control (test code = Reactive Control) Reactive Weak Reactive Control (test code = Weak Reactive Weak Reactive Control) Non-Reactive Control (test code = Non-Reactive Non-Reactive Control) Lot # (test code = Lot #) [id number] Expiration Dt (test code = Expiration Dt) 05-16-20 N Thyroid Stimulating [id number] 07:16:59 Test Item Value Reference Range Interpretation Comments TSH (test code = TSH) 0.821 mIU/mL 0.270-4.200 Lipid [id number] 07:13:24 Test Item Value Reference Range Interpretation Comments Cholesterol Total 153 mg/dL 0-200 RISK OF HE ART (test code = DISEASEPublishe d by Cholesterol Total) [place] Tabatha lyte Optimal Borderl ine Increased RiskC HOL <200 200-239 >2 40TRIG <150 150-199 >2 00HDL Male >60 <40H DL Female >60 <5 0LDL <100 130-159 >1 60LDL Near optimal is 100-129 Triglycerides (test 105 mg/dL 9-200 code = Triglycerides) HDL (test code = HDL) 34 mg/dL 40-60 L LDL (test code = LDL) 98 mg/dL 0-130 The eq uation being used in this calcula tion is LDL = (Chol - H DL) - (Trig / 5) VLDL (test code = 21 mg/dL 5-40 The equati on being used VLDL) in this calcula tion is VLDL = Trig / 5 Chol/HDL (test code = 4.5 ratio 0.0-5.0 Chol/HDL) LDL/HDL Ratio (test 3 N The equa tion being used code = LDL/HDL Ratio) in thi s calculation is LDL/HDL Ratio=L DL Calc/HDL Chol
[2020-01-31 21:50] LABS: Urine Blood NEGATIVE (NEG); Urine Glucose NEGATIVE (NEG); Urine Protein NEGATIVE (NEG); Urine Specific Gravity >1.030 (1.005-1.030); Urine pH 5.5 (5.0-7.0)
[2020-01-31 21:52] LABS: Absolute Lymphocytes (CBC) 2.1 K/uL (0.7-4.9); Basophils % 0.3 % (0-1.3); MPV 7.9 fL (7.6-11.3); RBC Red Blood Cell Count 4.66 M/uL (4.33-5.43)
[2020-01-31 21:55] LABS: Protime INR 1.05
[2020-01-31 22:02] LABS: Barbiturates NEGATIVE (NEGATIVE); Benzodiazepines NEGATIVE (NEGATIVE); Cocaine NEGATIVE (NEGATIVE); METHAMPHETAM NEGATIVE (NEGATIVE); Methadone NEGATIVE (NEGATIVE); Opiates NEGATIVE (NEGATIVE); Phencyclidine NEGATIVE (NEGATIVE); THC Cannibis POSITIVE (NEGATIVE)
[2020-01-31] MEDS ORDERED: NA CHLORIDE 0.9% 1,000 ML ONE (22:09)
[2020-01-31 22:16] LABS: ALT/SGPT 34 U/L (12-78); AST/SGOT 15 U/L (15-37); Albumin 4.1 g/dL (3.4-5.0); Alkaline Phosphatase 63 U/L (45-117); BUN Blood Urea Nitrogen 16 mg/dL (7-18); Bicarbonate 25 mmol/L (21-32); Bilirubin Direct < 0.1 mg/dL (0-0.2); Bilirubin Total 0.4 mg/dL (0.2-1.0); Glucose Level 91 mg/dL (74-106); Potassium 3.4 mmol/L (3.5-5.1); Protein, Total 6.9 g/dL (6.4-8.2); Sodium Level 143 mmol/L (136-145)
[2020-02-01] MEDS ORDERED: NA CHLORIDE 0.9% 1,000 ML ONE (00:26)
--- NOTE | 2020-02-01 00:52 | EDPHYS ---
Physician Documentation [facility] Name: Kal Carpenter Age: 34 yrs Sex: Male : 1985 Arrival Date: 01/31/2020 Time: 20:56 Bed 5 Private MD: ED Physician Levi Payton HPI: 01/30 22:17 This 34 yrs old Male presents to ER via EMS with complaints of Shortness Of jr8 Breath. 22:17 Onset: The symptoms/episode began/occurred acutely, today. Duration: The symptoms are jr8 continuous, but are steadily getting better. The patient's shortness of breath has no apparent modifying factors. Associated signs and symptoms: Pertinent positives: This patient does not have any pertinent positive signs or symptoms associated with shortness of breath. Severity of symptoms: At their worst the symptoms were moderate in the emergency department the symptoms have improved. It is unknown whether or not the patient has had similar symptoms in the past. The patient has not recently seen a physician. Patient stated that he smoked an old cigarette, a joint, and then took an old respirodal. Stated that the started to feel like his throat was closing and felt short of breath. Started to walk to hospital but collapsed. Feeling better now. Stated that he has also been hearing things for several years . Historical: - Allergies: 21:01 PENICILLINS; ea - Home Meds: 21:01 Xanax 1 mg Oral tab twice a day [Active]; alprazolam 1 mg Oral tab 1 tab 3 times per ea day [Active]; Adderall XR 30 mg oral cp24 [Active]; - PMHx: 21:01 chronic back pain; Anxiety; ADD/ADHD; ea - PSHx: 21:01 None; ea - Immunization history:: Adult Immunizations up to date. - Social history:: Smoking status: unknown. ROS: 22:17 Eyes: Negative for injury, pain, redness, and discharge, ENT: Negative for injury, jr8 pain, and discharge, Neck: Negative for injury, pain, and swelling, Cardiovascular: Negative for chest pain, palpitations, and edema, Abdomen/GI: Negative for abdominal pain, nausea, vomiting, diarrhea, and constipation, Back: Negative for injury and pain, MS/Extremity: Negative for injury and deformity, Skin: Negative for injury, rash, and discoloration, Neuro: Negative for headache, weakness, numbness, tingling, and seizure. 22:17 Respiratory: Positive for cough, shortness of breath. 22:17 Psych: Positive for auditory hallucinations. Exam: 22:17 Eyes: Pupils equal round and reactive to light, extra-ocular motions intact. Lids and jr8 lashes normal. Conjunctiva and sclera are non-icteric and not injected. Cornea within normal limits. Periorbital areas with no swelling, redness, or edema. ENT: Nares patent. No nasal discharge, no septal abnormalities noted. Tympanic membranes are normal and external auditory canals are clear. Oropharynx with no redness, swelling, or masses, exudates, or evidence of obstruction, uvula midline. Mucous membranes moist. Neck: Trachea midline, no thyromegaly or masses palpated, and no cervical lymphadenopathy. Supple, full range of motion without nuchal rigidity, or vertebral point tenderness. No Meningismus. Cardiovascular: Regular rate and rhythm with a normal S1 and S2. No gallops, murmurs, or rubs. Normal PMI, no JVD. No pulse deficits. Respiratory: Lungs have equal breath sounds bilaterally, clear to auscultation and percussion. No rales, rhonchi or wheezes noted. No increased work of breathing, no retractions or nasal flaring. Abdomen/GI: Soft, non-tender, with normal bowel sounds. No distension or tympany. No guarding or rebound. No evidence of tenderness throughout. Back: No spinal tenderness. No costovertebral tenderness. Full range of motion. Skin: Warm, dry with normal turgor. Normal color with no rashes, no lesions, and no evidence of cellulitis. MS/ Extremity: Pulses equal, no cyanosis. Neurovascular intact. Full, normal range of motion. Neuro: Awake and alert, GCS 15, oriented to person, place, time, and situation. Cranial nerves II-XII grossly intact. Motor strength 5/5 in all extremities. Sensory grossly intact. Cerebellar exam normal. Normal gait. Psych: Awake, alert, with orientation to person, place and time. Behavior, mood, and affect are within normal limits. Not suicidal or homicidal. Currently not hearing voices or seeing things 01/31 00:05 ECG was reviewed by the Attending Physician. [facility] Vital Signs: 01/30 20:58 BP 158 / 107; Pulse 112; Resp 18; Temp 98.7; Pulse Ox 100% ; ea 21:50 BP 141 / 105; Pulse 111; Resp 18; Pulse Ox 98% on R/A; ea 23:01 BP 140 / 94; Pulse 88; Resp 18; Pulse Ox 98% ; ea 01/31 00:09 BP 124 / 96; Pulse 98; Resp 16; Pulse Ox 97% ; ea 02:30 BP 128 / 90; Pulse 98; Resp 18; Pulse Ox 99% ; ea 04:00 BP 127 / 96; Pulse 85; Resp 18; Pulse Ox 98% ; ea 05:18 BP 127 / 73; Pulse 90; Resp 18; Pulse Ox 98% on R/A; ea 06:21 BP 99 / 64; Pulse 88; Resp 16; Pulse Ox 98% on R/A; ea MDM: 01/30 21:10 Patient medically screened. 01/31 00:49 Data reviewed: vital signs, nurses notes, lab test result(s), and as a result, I will [facility] discharge patient. Data interpreted: Pulse oximetry: on room air is 97 %. Interpretation: normal. Counseling: I had a detailed discussion with the patient and/or guardian regarding: the historical points, exam findings, and any diagnostic results supporting the discharge/admit diagnosis, lab results, the need for outpatient follow up, a psychiatrist, to return to the emergency department if symptoms worsen or persist or if there are any questions or concerns that arise at home. ED course: Patient hemodynamically stable. Feeling better. Will d/c home to f/u with psychiatry. Will give info for [facility] as immediate evaluation is not necessitated at this time . 01/30 21:10 Order name: Acetaminophen; Complete Time: 22:21 01/30 21:10 Order name: Basic Metabolic Panel; Complete Time: 22:21 01/30 21:10 Order name: CBC with Diff; Complete Time: 21:59 01/30 21:10 Order name: ETOH Level; Complete Time: 22:21 01/30 21:10 Order name: Hepatic Function; Complete Time: 22:21 01/30 21:10 Order name: PT-INR; Complete Time: 21:59 01/30 21:10 Order name: Ptt, Activated; Complete Time: 21:59 01/30 21:10 Order name: Salicylate; Complete Time: 22:21 [facility] 01/30 21:10 Order name: Urine Drug Screen; Complete Time: 22:06 [facility] 01/30 21:43 Order name: Urine Dipstick--Ancillary (enter results); Complete Time: 21:59 [facility] 01/30 21:10 Order name: EKG; Complete Time: 21:11 [facility] 01/30 21:10 Order name: EKG - Nurse/Tech; Complete Time: 21:25 [facility] 01/30 21:10 Order name: IV Saline Lock; Complete Time: 21:35 [facility] 01/30 21:10 Order name: Labs collected and sent; Complete Time: 21:35 [facility] 01/30 21:10 Order name: Urine Dipstick-Ancillary (obtain specimen); Complete Time: 21:50 jr8 EC:05 Rate is 114 beats/min. Rhythm is regular, Sinus tachycardia. QRS [place] is Normal. DC jr8 interval is normal at 130 msec. QRS interval is normal at 82 msec. QT interval is normal at 449 msec. No Q waves. T waves are Normal. No ST changes noted. Clinical impression: Sinus tachycardia. Interpreted by me. Reviewed by me. Administered Medications: 01/30 22:03 Drug: NS 0.9% 1000 ml Route: IV; Rate: 1000 ml; Site: left antecubital; ea 01/31 03:22 Follow up: IV Status: Completed infusion; IV Intake: 1000ml ea 01:12 CANCELLED (Other Intervention Used): Ativan 1 mg IVP once ea 02:11 CANCELLED (Other Intervention Used): Ativan 1 mg PO once ea 02:20 Drug: Ativan 1 mg Route: IVP; Site: left antecubital; ea 03:22 Follow up: Response: No adverse reaction ea Disposition: 07:19 Co-signature as Attending Physician, Levi Payton MD. pkl Disposition: 02/01/20 00:51 Discharged to Home. Impression: Auditory hallucinations, Drug abuse counseling and surveillance. - Condition is Stable. - Discharge Instructions: Finding Treatment for Addiction, Psychosis, Drug Overdose, Drug Toxicity. - Medication Reconciliation Form, Thank You Letter, Antibiotic Education, Prescription Opioid Use form. - Follow up: Private Physician; When: 2 - 3 days; Reason: Recheck today's complaints, Continuance of care, Re-evaluation by your physician. - Problem is new. - Symptoms have improved. Signatures: Dispatcher [employer] EDLevi Nance MD MD pkl Roszak, Josh, PA PA jr8 Christina Garsia RN RN ea Corrections: (The following items were deleted from the chart) 01:12 01:04 Ativan 1 mg IVP once ordered. jr8 ea :12 01:12 Ativan 1 mg IVP once ordered. ea ea : 01:12 Ativan 1 mg PO once ordered. ea ea 02:11 Ativan 1 mg PO once ordered. ea ea 06:44 00:51 02/01/2020 00:51 Discharged to Home. Impression: Auditory hallucinations; Drug ea abuse counseling and surveillance. Condition is Stable. Forms are Medication Reconciliation Form, Thank You Letter, Antibiotic Education, Prescription Opioid Use. Follow up: Private Physician; When: 2 - 3 days; Reason: Recheck today's complaints, Continuance of care, Re-evaluation by your physician. Problem is new. Symptoms have improved. jr8
--- NOTE | 2020-02-01 00:52 | ER ---
Nurse's Notes [facility] Name: Kal Carpenter Age: 34 yrs Sex: Male : 1985 Arrival Date: 01/31/2020 Time: 20:56 Bed 5 Private MD: Diagnosis: Auditory hallucinations;Drug abuse counseling and surveillance Presentation: 01/30 20:58 Chief complaint: EMS states: Report he was walking from his apartment to the ED, pt ea reports he started feeling like his neck was swelling, reported to EMS he thinks someone poisoned him. Pt states he has hallucinations and take Risperdal for them. Coronavirus screen: Proceed with normal triage. Ebola Screen: No symptoms or risks identified at this time. Initial Sepsis Screen: Does the patient meet any 2 criteria? No. Patient's initial sepsis screen is negative. Does the patient have a suspected source of infection? No. Patient's initial sepsis screen is negative. Risk Assessment: Do you want to hurt yourself or someone else? Patient reports no desire to harm self or others. Onset of symptoms was January 31, 2020. 20:58 Method Of Arrival: EMS: [facility] ea 20:58 Acuity: GERMAN 3 ea Triage Assessment: 21:01 General: Appears in no apparent distress. Behavior is calm, cooperative, appropriate ea for age. Pain: Denies pain. Respiratory: Reports reports his throat is swelling Onset: The symptoms/episode began/occurred today, the patient has mild shortness of breath. Derm: Skin is intact, Skin is pink, warm \T\ dry. Historical: - Allergies: 21:01 PENICILLINS; ea - Home Meds: 21:01 Xanax 1 mg Oral tab twice a day [Active]; alprazolam 1 mg Oral tab 1 tab 3 times per ea day [Active]; Adderall XR 30 mg oral cp24 [Active]; - PMHx: 21:01 chronic back pain; Anxiety; ADD/ADHD; ea - PSHx: 21:01 None; ea - Immunization history:: Adult Immunizations up to date. - Social history:: Smoking status: unknown. Screenin:00 Abuse screen: Denies threats or abuse. Nutritional screening: No deficits noted. ea Tuberculosis screening: No symptoms or risk factors identified. Fall Risk None identified. Assessment: 21:00 General: Appears in no apparent distress. Behavior is cooperative, restless. Neuro: ea Level of Consciousness is awake, alert, obeys commands, Oriented to person, place, time, situation. Cardiovascular: Patient's skin is warm and dry. Respiratory: Airway is patent Respiratory effort is even, unlabored, Respiratory pattern is regular, symmetrical. Derm: Skin is pink, warm \T\ dry. 22:05 Reassessment: Patient and/or family updated on plan of care and expected duration. Pain ea level reassessed. Patient is alert, oriented x 3, equal unlabored respirations, skin warm/dry/pink. 23:01 Reassessment: Patient and/or family updated on plan of care and expected duration. Pain ea level reassessed. Patient is alert, oriented x 3, equal unlabored respirations, skin warm/dry/pink. 01/31 00:08 Reassessment: Patient and/or family updated on plan of care and expected duration. Pain ea level reassessed. Pt resting with eyes closed, respirations even and unlabored. Chest expansions even and symmetrical. 01:07 Reassessment: this pt was provided with a community resources packet as well as contact sg info for the [facility] attached to his discharge packet as instructed by Deandre PACHECO. 02:24 Reassessment: Patient and/or family updated on plan of care and expected duration. Pain ea level reassessed. Patient is alert, oriented x 3, equal unlabored respirations, skin warm/dry/pink. Pt unable to obtain ride home at this time. Awaiting on fluids to complete. 04:56 Reassessment: Patient and/or family updated on plan of care and expected duration. Pain ea level reassessed. Pt resting with eyes closed, respirations even and unlabored. Chest expansions even and symmetrical. 06:43 Reassessment: Patient and/or family updated on plan of care and expected duration. Pain ea level reassessed. Patient is alert, oriented x 3, equal unlabored respirations, skin warm/dry/pink. Discharge instruction given to patient, verbalized the understanding of instruction. Pt left ED ambulatory tolerating well. Vital Signs: 01/30 20:58 BP 158 / 107; Pulse 112; Resp 18; Temp 98.7; Pulse Ox 100% ; ea 21:50 BP 141 / 105; Pulse 111; Resp 18; Pulse Ox 98% on R/A; ea 23:01 BP 140 / 94; Pulse 88; Resp 18; Pulse Ox 98% ; ea 01/31 00:09 BP 124 / 96; Pulse 98; Resp 16; Pulse Ox 97% ; ea 02:30 BP 128 / 90; Pulse 98; Resp 18; Pulse Ox 99% ; ea 04:00 BP 127 / 96; Pulse 85; Resp 18; Pulse Ox 98% ; ea 05:18 BP 127 / 73; Pulse 90; Resp 18; Pulse Ox 98% on R/A; ea 06:21 BP 99 / 64; Pulse 88; Resp 16; Pulse Ox 98% on R/A; ea ED Course: 01/30 20:56 Patient arrived in ED. sg 20:58 Christina Garsia, RN is Primary Nurse. ea 21:00 Triage completed. ea 21:00 Patient has correct armband on for positive identification. Bed in low position. Call ea light in reach. 21:00 Arm band placed on right wrist. Patient placed in an exam room, on a stretcher, on ea conveyor monitor, on pulse oximetry. 21:10 Deandre Baker PA is PHCP. jr8 21:10 Levi Payton MD is Attending Physician. jr8 21:33 Inserted saline lock: 20 gauge in left antecubital area, using aseptic technique. ea 01/31 03:22 No provider procedures requiring assistance completed. ea 06:40 IV discontinued, intact, bleeding controlled, No redness/swelling at site. Pressure ea dressing applied. Administered Medications: 01/30 22:03 Drug: NS 0.9% 1000 ml Route: IV; Rate: 1000 ml; Site: left antecubital; ea 01/31 03:22 Follow up: IV Status: Completed infusion; IV Intake: 1000ml ea 01:12 CANCELLED (Other Intervention Used): Ativan 1 mg IVP once ea 02:11 CANCELLED (Other Intervention Used): Ativan 1 mg PO once ea 02:20 Drug: Ativan 1 mg Route: IVP; Site: left antecubital; ea 03:22 Follow up: Response: No adverse reaction ea Intake: 03:22 IV: 1000ml; Total: 1000ml. ea Outcome: 00:51 Discharge ordered by . jr8 06:43 Discharged to home ambulatory. ea 06:43 Condition: stable 06:43 Discharge instructions given to patient, Instructed on discharge instructions, follow up and referral plans. Demonstrated understanding of instructions, follow-up care. 06:44 Patient left the ED. ea Signatures: Talha Lewis RN Deandre Shirley PA PA jr8 Christina Garsia RN RN ea
[2020-02-01] MEDS ORDERED: LORazepam 2 MG/ML VIAL ONE ×2 (01:17→02:23)
[2020-02-01] MEDS ORDERED: LORAZEPAM 1 MG TABLET ONE (01:20)
[2020-02-01 09:33] VITALS: O2SAT 98
[2020-02-01 09:35] VITALS: BP 99/64
--- NOTE | 2020-02-02 08:11 | EKG ---
Test Date: 2020-01-31 Test Time: 21:26:21 Lead Teacher: BERLIN MEASUREMENT RESULTS: Intervals: Rate: 114 CO: 130 QRSD: 82 QT: 326 QTc: 449 [place]: P: 81 CO: 130 QRS: 79 T: 92 INTERPRETIVE STATEMENTS: Sinus tachycardia Otherwise normal ECG Compared to ECG 07/23/2019 17:36:13 No significant changes Electronically Signed On 02-02-20 08:09:03 CDT by Andrew Salvador
== END 2020-02-01 06:44 | disposition home or self-care (01) ==
LOC: ER 20:51
DX: R44.0 Auditory hallucinations (principal); Z71.51 Drug abuse counseling and surveillance of drug abuser; F41.9 Anxiety disorder, unspecified; F90.9 Attention-deficit hyperactivity disorder, unspecified type; Z88.0 Allergy status to penicillin
CPT/HCPCS: 36415; 80048; 80076; 80307; 80320; 80329; 81003; 85025; 85610; 85730; 93005; 96361; 96374; 99284; J7030

== ENCOUNTER 2020-03-12 04:29 | Emergency (ER) | payer SELFPAY ==
--- OUTSIDE RECORDS SUMMARY | 2020-03-12 04:32 | XMS REPORT | Continuity of Care Document ---
:1985 Author Organization [facility] Address [address] [place] [address] Care Team Providers Name Role Phone Unavailable Unavailable Unavailable Problems This patient has no known problems. Allergies, Adverse Reactions, Alerts This patient has no known allergies or adverse reactions. Medications This patient has no known medications. Procedures This patient has no known procedures. Results Test Description Test Time Test Comments Results Result [facility] e Comments XR Chest 1 View 2019-08-02 [...] = Expiration Dt) 05-16-20 N Thyroid Stimulating [id number] 07:16:59 Test Item Value Reference Range Interpretation Comments TSH (test code = TSH) 0.821 mIU/mL 0.270-4.200 Lipid [id number] 07:13:24 Test Item Value Reference Range Interpretation Comments Cholesterol Total 153 mg/dL 0-200 RISK OF HE ART (test code = DISEASEPublishe d by Cholesterol Total) [place] [employer] Tabatha lyte Optimal Borderl ine [...]
[2020-03-12] MEDS ORDERED: LORazepam 2 MG/ML VIAL ONE ×2 (05:28→07:12)
[2020-03-12] MEDS ORDERED: NA CHLORIDE 0.9% 1,000 ML ONE (05:28)
[2020-03-12 05:47] LABS: Barbiturates NEGATIVE (NEGATIVE); Benzodiazepines POSITIVE (NEGATIVE); Cocaine NEGATIVE (NEGATIVE); METHAMPHETAM POSITIVE (NEGATIVE); Methadone NEGATIVE (NEGATIVE); Opiates NEGATIVE (NEGATIVE); Phencyclidine NEGATIVE (NEGATIVE); THC Cannibis NEGATIVE (NEGATIVE)
[2020-03-12 06:00] LABS: Absolute Lymphocytes (CBC) 1.5 K/uL (0.7-4.9); Basophils % 0.5 % (0-1.3); Hematocrit 44.5 % (39.6-49.0); Lymphocytes % 31.3 % (15.3-44.8); MPV 8.3 fL (7.6-11.3); RBC Red Blood Cell Count 5.11 M/uL (4.33-5.43)
[2020-03-12 06:02] LABS: Protime INR 1.09
[2020-03-12 06:04] LABS: Urine Blood NEGATIVE (NEG); Urine Glucose NEGATIVE (NEG); Urine Protein NEGATIVE (NEG); Urine Specific Gravity 1.025 (1.005-1.030)
[2020-03-12 06:46] LABS: ALT/SGPT 106 U/L (12-78); AST/SGOT 51 U/L (15-37); Albumin 3.9 g/dL (3.4-5.0); Alkaline Phosphatase 62 U/L (45-117); BUN Blood Urea Nitrogen 9 mg/dL (7-18); Bicarbonate 27 mmol/L (21-32); Bilirubin Direct 0.2 mg/dL (0-0.2); Bilirubin Total 0.8 mg/dL (0.2-1.0); Glucose Level 110 mg/dL (74-106); Potassium 3.4 mmol/L (3.5-5.1); Protein, Total 7.5 g/dL (6.4-8.2); Sodium Level 140 mmol/L (136-145)
--- NOTE | 2020-03-12 07:17 | ER ---
Nurse's Notes [facility] Name: Kal Carpenter Age: 35 yrs Sex: Male : 1985 Arrival Date: 03/12/2020 Time: 04:32 Bed 19 Private MD: Diagnosis: Altered mental status, unspecified;Dehydration;Adverse effect of amphetamines Presentation: 03/12 04:44 Chief complaint: Patient states: "I AM HAVING HALLUCINATIONS. BLURRED VISION AND LITTLE rv SHORT OF BREATH." SYMPTOMS STARTED EARLIER TONIGHT. Coronavirus screen: Client denies travel out of the [place] in the last 14 days. At this time, the client does not indicate any symptoms associated with coronavirus-19. Ebola Screen: No symptoms or risks identified at this time. Initial Sepsis Screen: Does the patient meet any 2 criteria? No. Patient's initial sepsis screen is negative. Does the patient have a suspected source of infection? No. Patient's initial sepsis screen is negative. Risk Assessment: Do you want to hurt yourself or someone else? Patient reports no desire to harm self or others. Onset of symptoms was March 11, 2020 at 19:00. 04:44 Method Of Arrival: Ambulatory rv 04:44 Acuity: GERMAN 2 rv Triage Assessment: 04:48 General: Appears comfortable, Behavior is calm, cooperative. Pain: Denies pain. EENT: rv Reports blurred vision. Neuro: Level of Consciousness is awake, alert, obeys commands, Oriented to person, place, time, situation. Cardiovascular: Patient's skin is warm and dry. Rhythm is sinus tachycardia. Respiratory: Airway is patent Respiratory effort is even, unlabored. Derm: Skin is healthy with good turgor. Historical: - Allergies: 04:48 PENICILLINS; rv - PMHx: 04:48 ADD/ADHD; Anxiety; chronic back pain; rv - PSHx: 04:48 None; rv - Immunization history:: Adult Immunizations up to date. - Social history:: Smoking status: Patient denies any tobacco usage or history of. Screenin:49 Abuse screen: Denies threats or abuse. Denies injuries from another. Nutritional rv screening: No deficits noted. Tuberculosis screening: No symptoms or risk factors identified. Fall Risk None identified. Assessment: 06:09 Reassessment: patient is asleep. vital signs stable. rv 07:40 Reassessment: Pt informed he is good for discharge. Asked if he could call for a ride sv home. Pt stated "Yall don't provide that?" Pt informed that I could call for a taxi that he could provide payment for. Pt stated ok. Taxi service called. Vital Signs: 04:44 BP 150 / 111; Pulse 124; Resp 21; Temp 98.6; Pulse Ox 100% ; Weight 90.72 kg; Height 6 rv ft. (182.88 cm); Pain 0/10; 06:09 BP 138 / 105; Pulse 96; Resp 15; Pulse Ox 99% on R/A; rv 07:13 BP 128 / 100; Pulse 105; Resp 17; Pulse Ox 100% ; sv 04:44 Body Mass Index 27.12 (90.72 kg, 182.88 cm) rv ED Course: 04:32 Patient arrived in ED. es 04:37 Ken Ponce, RN is Primary Nurse. rv 04:47 Triage completed. rv 04:49 Isreal Lee MD is Attending Physician. [facility] 04:49 Arm band placed on right wrist. Patient placed in the treatment room, on a stretcher, rv Patient notified of wait time. 04:49 Patient has correct armband on for positive identification. school lunch monitor on. Pulse rv ox on. NIBP on. 04:53 Urine Drug Screen Sent. ds4 05:01 Urine Dipstick--Ancillary (enter results) Sent. ds4 05:15 Initial lab(s) drawn, by oh, sent to lab. Inserted saline lock: 20 gauge in right rv antecubital area, using aseptic technique. Blood collected. 05:35 Chest Single View XRAY In Process Unspecified. EDMS 07:02 Attending Physician role handed off by Isreal Lee MD rn 07:02 Baldomero Villavicencio MD is Attending Physician. rn 07:13 Primary Nurse role handed off by Ken Ponce, DEE sv 07:13 Darlyn Chawla, DEE is Primary Nurse. sv 07:40 No provider procedures requiring assistance completed. IV discontinued, intact, sv bleeding controlled, No redness/swelling at site. Pressure dressing applied. Administered Medications: 05:19 Drug: NS 0.9% 1000 ml Route: IV; Rate: 1000 ml; Site: right antecubital; rv 06:10 Follow up: IV Status: Completed infusion; IV Intake: 1000ml rv 05:19 Drug: Ativan 1 mg Route: IVP; Site: right antecubital; rv 06:10 Follow up: Response: No adverse reaction rv 07:05 Drug: Ativan 1 mg Route: IVP; Site: right antecubital; rv 07:14 Follow up: Response: No adverse reaction sv Intake: 06:10 IV: 1000ml; Total: 1000ml. rv Outcome: 07:17 Discharge ordered by . rn 07:40 Discharged to home ambulatory. sv 07:40 Condition: stable 07:40 Discharge instructions given to patient, Instructed on discharge instructions, follow up and referral plans. keep hydrated Demonstrated understanding of instructions, follow-up care. 08:03 Patient left the ED. sv Signatures: Dispatcher [employer] Darlyn Church RN RN sv Salyer, Edna es Nieto, Roman, MD MD rn Swanson, Donovan ds4 Ken Ponce RN RN rv Holmes, Maurice, MD MD [id number]
--- NOTE | 2020-03-12 07:17 | EDPHYS ---
Physician Documentation [facility] Name: Kal Carpenter Age: 35 yrs Sex: Male : 1985 Arrival Date: 03/12/2020 Time: 04:32 Bed 19 Private MD: ED Physician Baldomero Villavicencio HPI: 03/12 05:01 This 35 yrs old Male presents to ER via Ambulatory with complaints of FEEL mh7 LIKE HE HAS BEEN POSION. 05:01 The patient presents to the emergency department with psychosis, has experienced mh7 auditory hallucinations, has experienced visual hallucinations. Onset: The symptoms/episode began/occurred last night. 05:01 Past psychiatric history: Prior diagnosis: Anxiety. Associated signs and symptoms: mh7 Pertinent positives; anxiety, hallucinations, shortness of breath, Pertinent negatives: abdominal pain, chest pain, chills, delusions, depression, fever, headache, homicidal ideation, nausea, night sweats, palpitations, paranoia, substance abuse, suicide ideation, tremor, vomiting. Severity of symptoms: At their worst the symptoms were moderate last night, in the emergency department the symptoms are unchanged. Patient states that he thinks he has been poisoned. He states that he has been seeing aliens. He also reports hearing voices without any specific commands. he denies any suicidal or homicidal ideations.. Historical: - Allergies: 04:48 PENICILLINS; rv - PMHx: 04:48 ADD/ADHD; Anxiety; chronic back pain; rv - PSHx: 04:48 None; rv - Immunization history:: Adult Immunizations up to date. - Social history:: Smoking status: Patient denies any tobacco usage or history of. ROS: 05:01 Constitutional: Negative for fever, chills, and weight loss, ENT: Negative for injury, mh7 pain, and discharge, Neck: Negative for injury, pain, and swelling, Cardiovascular: Negative for chest pain, palpitations, and edema, Abdomen/GI: Negative for abdominal pain, nausea, vomiting, diarrhea, and constipation, Back: Negative for injury and pain, : Negative for injury, bleeding, discharge, and swelling, MS/Extremity: Negative for injury and deformity, Skin: Negative for injury, rash, and discoloration, Neuro: Negative for headache, weakness, numbness, tingling, and seizure, Allergy/Immunology: Negative for hives, rash, and allergies, Endocrine: Negative for neck swelling, polydipsia, polyuria, polyphagia, and marked weight changes, Hematologic/Lymphatic: Negative for swollen nodes, abnormal bleeding, and unusual bruising. Exam: 05:01 Head/Face: Normocephalic, atraumatic. Eyes: Pupils equal round and reactive to light, mh7 extra-ocular motions intact. Lids and lashes normal. Conjunctiva and sclera are non-icteric and not injected. Cornea within normal limits. Periorbital areas with no swelling, redness, or edema. ENT: Nares patent. No nasal discharge, no septal abnormalities noted. Tympanic membranes are normal and external auditory canals are clear. Oropharynx with no redness, swelling, or masses, exudates, or evidence of obstruction, uvula midline. Mucous membranes moist. Neck: Trachea midline, no thyromegaly or masses palpated, and no cervical lymphadenopathy. Supple, full range of motion without nuchal rigidity, or vertebral point tenderness. No Meningismus. Chest/axilla: Normal chest wall appearance and motion. Nontender with no deformity. No lesions are appreciated. 05:01 Respiratory: Lungs have equal breath sounds bilaterally, clear to auscultation and percussion. No rales, rhonchi or wheezes noted. No increased work of breathing, no retractions or nasal flaring. Abdomen/GI: Soft, non-tender, with normal bowel sounds. No distension or tympany. No guarding or rebound. No evidence of tenderness throughout. Back: No spinal tenderness. No costovertebral tenderness. Full range of motion. Skin: Warm, dry with normal turgor. Normal color with no rashes, no lesions, and no evidence of cellulitis. MS/ Extremity: Pulses equal, no cyanosis. Neurovascular intact. Full, normal range of motion. Neuro: Awake and alert, GCS 15, oriented to person, place, time, and situation. Cranial nerves II-XII grossly intact. Motor strength 5/5 in all extremities. Sensory grossly intact. Cerebellar exam normal. Normal gait. 05:01 Constitutional: The patient appears in no acute distress, alert, awake, anxious. 05:01 Cardiovascular: Rate: tachycardic, Rhythm: regular, Pulses: no pulse deficits are appreciated, Heart sounds: normal, normal S1and S2, Edema: is not appreciated, JVD: is not appreciated. 05:01 Psych: Behavior/mood is cooperative, anxious, Affect is calm, Oriented to person, place, time, Patient has no thoughts/intents to harm self or others. Judgement / Insight is normal. Memory is normal. Delusions/hallucinations are present and described as seeing aliens and hearing voices. 06:55 ECG was reviewed by the Attending Physician. [facility] Vital Signs: 04:44 BP 150 / 111; Pulse 124; Resp 21; Temp 98.6; Pulse Ox 100% ; Weight 90.72 kg; Height 6 rv ft. (182.88 cm); Pain 0/10; 06:09 BP 138 / 105; Pulse 96; Resp 15; Pulse Ox 99% on R/A; rv 07:13 BP 128 / 100; Pulse 105; Resp 17; Pulse Ox 100% ; sv 04:44 Body Mass Index 27.12 (90.72 kg, 182.88 cm) rv MDM: 05:09 Patient medically screened. [facility] 07:01 Transition of care: After a detail discussion of the patient's case, care is [facility] transferred to Baldomero Villavicencio MD. 07:15 Differential diagnosis: hallucinations, drug use and adverse reaction, dehydration. rn Data reviewed: vital signs, nurses notes, lab test result(s), EKG, radiologic studies, plain films, and as a result, I will discharge patient. Counseling: I had a detailed discussion with the patient and/or guardian regarding: the historical points, exam findings, and any diagnostic results supporting the discharge/admit diagnosis, lab results, radiology results, the need for outpatient follow up, to return to the emergency department if symptoms worsen or persist or if there are any questions or concerns that arise at home. Response to treatment: the patient's symptoms have markedly improved after treatment, and as a result, I will discharge patient. Special discussion: I discussed with the patient/guardian in detail that at this point there is no indication for admission to the hospital. It is understood, however, that if the symptoms persist or worsen the patient needs to return immediately for re-evaluation. 03/12 04:47 Order name: Urine Drug Screen; Complete Time: 06:05 ds4 03/12 04:53 Order name: Urine Dipstick--Ancillary (enter results); Complete Time: 06: ds4 03/12 05:00 Order name: Acetaminophen; Complete Time: 06:51 03/12 05:00 Order name: Basic Metabolic Panel; Complete Time: 06:51 03/12 05:00 Order name: CBC with Diff; Complete Time: 06:17 03/12 05:00 Order name: ETOH Level; Complete Time: 06:17 03/12 05:00 Order name: Hepatic Function; Complete Time: 06:51 03/12 05:00 Order name: PT-INR; Complete Time: 06:17 03/12 05:00 Order name: Ptt, Activated; Complete Time: 06:17 03/12 05:00 Order name: Salicylate; Complete Time: 06:17 03/12 05:08 Order name: Chest Single View XRAY; Complete Time: 07:42 03/12 05:00 Order name: EKG; Complete Time: 05:01 03/12 05:00 Order name: EKG - Nurse/Tech; Complete Time: 05:15 03/12 05:00 Order name: IV Saline Lock; Complete Time: 05:01 03/12 05:00 Order name: Labs collected and sent; Complete Time: 05:15 03/12 05:00 Order name: Urine Dipstick-Ancillary (obtain specimen); Complete Time: 05:01 7 EC:55 Rate is 108 beats/min. Rhythm is regular, Sinus tachycardia. QRS [place] is Normal. [place] mh7 interval is normal. QRS interval is normal. QT interval is normal. No Q waves. T waves are Normal. No ST changes noted. Clinical impression: Sinus tachycardia. Administered Medications: 05:19 Drug: NS 0.9% 1000 ml Route: IV; Rate: 1000 ml; Site: right antecubital; rv 06:10 Follow up: IV Status: Completed infusion; IV Intake: 1000ml rv 05:19 Drug: Ativan 1 mg Route: IVP; Site: right antecubital; rv 06:10 Follow up: Response: No adverse reaction rv 07:05 Drug: Ativan 1 mg Route: IVP; Site: right antecubital; rv 07:14 Follow up: Response: No adverse reaction sv Disposition: 03/12/20 07:17 Discharged to Home. Impression: Altered mental status, unspecified, Dehydration, Adverse effect of amphetamines. - Condition is Stable. - Discharge Instructions: Dehydration, Adult, Stimulant Use Disorder-Methamphetamines. - Medication Reconciliation Form, Thank You Letter, Antibiotic Education, Prescription Opioid Use form. - Follow up: Private Physician; When: As needed; Reason: Recheck today's complaints, Re-evaluation by your physician. - Problem is new. - Symptoms have improved. Signatures: Dispatcher [employer] EDDarlyn Mendez RN RN sv Nieto, Roman, MD MD rn Vicente, Ronaldo, RN RN rv Holmes, Maurice, MD MD 7 Corrections: (The following items were deleted from the chart) 08:03 07:17 03/12/2020 07:17 Discharged to Home. Impression: Altered mental status, sv unspecified; Dehydration; Adverse effect of amphetamines. Condition is Stable. Forms are Medication Reconciliation Form, Thank You Letter, Antibiotic Education, Prescription Opioid Use. Follow up: Private Physician; When: As needed; Reason: Recheck today's complaints, Re-evaluation by your physician. Problem is new. Symptoms have improved. rn
--- NOTE | 2020-03-12 07:41 | RAD REPORT ---
EXAM DESCRIPTION: Isha Single View03/12/2020 5:35 am CLINICAL HISTORY: Shortness of breath COMPARISON: none FINDINGS: The lungs appear clear of acute infiltrate. The heart is normal size IMPRESSION: No acute abnormalities displayed
[2020-03-16 19:40] VITALS: TEMP 98.6
[2020-03-16 19:42] VITALS: BP 128/100; O2SAT 100
== END 2020-03-12 08:03 | disposition home or self-care (01) ==
LOC: ER 04:29
DX: E86.0 Dehydration (principal); T43.625A Adverse effect of amphetamines, initial encounter; Z88.0 Allergy status to penicillin
CPT/HCPCS: 36415; 71045; 80048; 80076; 80307; 80320; 80329; 81003; 85025; 85610; 85730; 93005; 96361; 96374; 99284; J7030

== ENCOUNTER 2020-05-22 11:46 | Emergency (ER) | payer SELFPAY ==
--- OUTSIDE RECORDS SUMMARY | 2020-05-22 11:48 | XMS REPORT | Continuity of Care Document ---
:1985 Author Organization [facility] t Address [address] [place] [address] Care Team Providers Name Role Phone Unavailable Unavailable Unavailable Problems This patient has no known problems. Allergies, Adverse Reactions, Alerts This patient has no known allergies or adverse reactions. Medications This patient has no known medications. Procedures This patient has no known procedures. Results Test Description Test Time Test Comments Results Result [facility] e Comments XR Chest 1 [...] = Expiration Dt) 05-16-20 N Thyroid Stimulating [id number] 07:16:59 Test Item Value Reference Range Interpretation Comments TSH (test code = TSH) 0.821 mIU/mL 0.270-4.200 Lipid [id number] 07:13:24 Test Item Value Reference Range Interpretation Comments Cholesterol Total 153 mg/dL 0-200 RISK OF HE ART (test code = DISEASEPublishe d by Cholesterol Total) [employer] Tabatha lyte Optimal Borderl ine [...]
[2020-05-22] MEDS ORDERED: LEVALBUTEROL 1.25 MG/3 ML NEB ONE (13:13)
[2020-05-22] MEDS ORDERED: NA CHLORIDE 0.9% 3,000 ML ONE (13:13)
[2020-05-22 13:34] LABS: Protime INR 1.07
[2020-05-22 13:40] LABS: Absolute Lymphocytes (CBC) 1.5 K/uL (0.7-4.9); Basophils % 0.2 % (0-1.3); Hematocrit 43.1 % (39.6-49.0); RBC Red Blood Cell Count 4.93 M/uL (4.33-5.43)
[2020-05-22 14:03] LABS: ALT/SGPT 41 U/L (12-78); AST/SGOT 17 U/L (15-37); Albumin 4.1 g/dL (3.4-5.0); Alkaline Phosphatase 70 U/L (45-117); BUN Blood Urea Nitrogen 13 mg/dL (7-18); Bicarbonate 30 mmol/L (21-32); Bilirubin Direct 0.2 mg/dL (0-0.2); Bilirubin Total 0.7 mg/dL (0.2-1.0); Glucose Level 105 mg/dL (74-106); Protein, Total 7.8 g/dL (6.4-8.2); Sodium Level 139 mmol/L (136-145)
--- NOTE | 2020-05-22 15:20 | RAD REPORT ---
EXAM DESCRIPTION: Isha Single View05/22/2020 2:52 pm CLINICAL HISTORY: sob COMPARISON: 2014 FINDINGS: The lungs appear clear of acute infiltrate. The heart is normal size IMPRESSION: No acute abnormalities displayed
[2020-05-22] MEDS ORDERED: LORazepam 2 MG/ML VIAL ONE (15:21)
[2020-05-22] MEDS ORDERED: NA CHLORIDE 0.9% 1,000 ML ONE (15:21)
--- NOTE | 2020-05-22 16:42 | ER ---
Nurse's Notes [facility] Name: Kal Carpenter Age: 35 yrs Sex: Male : 1985 Arrival Date: 05/22/2020 Time: 11:49 Bed 13 Private MD: Diagnosis: Presentation: 05/22 12:09 Chief complaint: Patient states: "I'm sweating, I keep getting real greasy and having ss some dizziness." Pt states he believes he may have been poisoned. Symptoms began today after he smoked what he thought was crystal meth. Coronavirus screen: Client denies travel out of the [place] in the last 14 days. Ebola Screen: Patient denies exposure to infectious person. Patient denies travel to an Ebola-affected area in the 21 days before illness onset. Initial Sepsis Screen: Does the patient meet any 2 criteria? HR > 90 bpm. Does the patient have a suspected source of infection? No. Patient's initial sepsis screen is negative. Risk Assessment: Do you want to hurt yourself or someone else? Patient reports no desire to harm self or others. Onset of symptoms was May 22, 2020. 12:09 Method Of Arrival: Ambulatory ss 12:09 Acuity: GERMAN 2 ss Historical: - Allergies: 12:12 PENICILLINS; ss - PMHx: 12:12 ADD/ADHD; Anxiety; chronic back pain; ss - PSHx: 12:12 None; ss - Immunization history:: Adult Immunizations unknown. - Social history:: Smoking status: Patient denies any tobacco usage or history of. Patient uses street drugs, Methamphetamine (Meth). Screenin:27 Abuse screen: Denies threats or abuse. Nutritional screening: No deficits noted. ll1 Tuberculosis screening: No symptoms or risk factors identified. Fall Risk IV access (20 points). Mental Status- Overestimates/Forgets Limitations (15 pts.). Total Kothari Fall Scale indicates Low Risk Score (25-44 pts). Fall prevention measures have been instituted. Side Rails Up X 2 Frequent Obs/Assesments occuring As available Patient and Family Educated on Fall Prevention Program and strategies. Assessment: 13:25 General: Appears distressed, Behavior is calm, cooperative, appropriate for age. Pain: ll1 Denies pain. 13:25 Neuro: Level of Consciousness is awake, alert, obeys commands, Oriented to person, ll1 place, time, situation, Appropriate for age Machine Candle Molder are equal bilaterally Moves all extremities. Full function Gait is steady, Speech is normal, Facial symmetry appears normal, Pupils are PERRLA, Reports dizziness. Cardiovascular: Reports diaphoresis, palpitations, sweating Heart tones S1 S2 Capillary refill < 3 seconds Clubbing of nail beds is absent JVD is absent Patient's skin is warm and dry. Pulses are all present. Rhythm is sinus tachycardia. Respiratory: Reports shortness of breath at rest Airway is patent Trachea midline Respiratory effort is even, unlabored, Respiratory pattern is regular, symmetrical, the patient has mild shortness of breath. GI: No deficits noted. : No deficits noted. Derm: Skin is intact, Skin is dry, Skin is pink, warm \\T\\ dry. normal, Skin temperature is warm Reports sweating a lot. 14:25 Reassessment: Patient and/or family updated on plan of care and expected duration. Pain ll1 level reassessed. Patient is alert, oriented x 3, equal unlabored respirations, skin warm/dry/pink. 15:25 Reassessment: Patient and/or family updated on plan of care and expected duration. Pain ll1 level reassessed. Patient is alert, oriented x 3, equal unlabored respirations, skin warm/dry/pink. 16:20 Reassessment: Patient and/or family updated on plan of care and expected duration. Pain ll1 level reassessed. patient not in room, eloped. Vital Signs: 12:08 BP 162 / 111; Pulse 135; Resp 20; Temp 98.5(TE); Pulse Ox 100% on R/A; Weight 90.72 kg; Height 6 ft. 0 in. (182.88 cm); Pain 0/10; 13:24 BP 152 / 104; Pulse 115; Resp 18; Pulse Ox 100% ; ll1 14:15 BP 141 / 94; Pulse 102; Resp 18; Pulse Ox 100% ; ll1 15:03 BP 141 / 94; Pulse 98; Resp 18; Pulse Ox 100% ; ll1 16:16 BP 148 / 100; Pulse 95; Resp 18; Pulse Ox 100% ; ll1 12:08 Body Mass Index 27.12 (90.72 kg, 182.88 cm) ED Course: 11:49 Patient arrived in ED. mr 12:09 Ravi Casillas PA is PHCP. [facility] 12:09 David Lancaster MD is Attending Physician. [facility] 12:09 Eldon Cornejo, DEE is Primary Nurse. 1 12:11 Triage completed. ss 12:12 Arm band placed on right wrist. ss 13:25 Inserted saline lock: 20 gauge in right antecubital area, using aseptic technique. ll1 Blood collected. 13:28 Patient has correct armband on for positive identification. Bed in low position. Call ll1 light in reach. Side rails up X 1. construction flagger on. Pulse ox on. NIBP on. 14:51 Chest Single View XRAY In Process Unspecified. EDMS 16:20 No provider procedures requiring assistance completed. intact, found IV on bedside ll1 table. Catheter intact. Administered Medications: 13:09 Drug: NS 0.9% 1000 ml Route: IV; Rate: 1 bolus; Site: right antecubital; ss 14:10 Follow up: Response: No adverse reaction; RASS: Alert and Calm (0); IV Status: ll1 Completed infusion; IV Intake: 1000ml 13:23 Drug: Xopenex (3) 1.25 mg Route: Inhalation; ll1 15:11 Follow up: Response: No adverse reaction; RASS: Alert and Calm (0) ll1 15:11 Drug: Ativan 1 mg Route: IVP; Site: right antecubital; ll1 16:37 Follow up: Response: No adverse reaction; RASS: Alert and Calm (0) ll1 15:11 Drug: NS 0.9% 1000 ml Route: IV; Rate: 1 bolus; Site: right antecubital; ll1 16:38 Follow up: Response: No adverse reaction; RASS: Alert and Calm (0); IV Status: ll1 Completed infusion; IV Intake: 1000ml Intake: 14:10 IV: 1000ml; Total: 1000ml. ll1 16:38 IV: 1000ml; Total: 2000ml. ll1 Outcome: 16:40 Eloped from patient exam room, after seeing physician Time discovered patient gone: ll1 May 22, 2020 at 16:20 16:40 Condition: stable 16:42 Patient left the ED. 1 Signatures: Dispatcher [employer] EDMS Ravi Casillas PA PA jmm Rivera, Mary Aure Arevalo, RN RN ss Eldon Cornejo, RN RN ll1
[2020-05-22 16:50] VITALS: TEMP 98.5; O2SAT 100
[2020-05-22 16:57] VITALS: BP 148/100
--- NOTE | 2020-05-23 16:48 | EDPHYS ---
Physician Documentation [facility] Name: Kal Carpenter Age: 35 yrs Sex: Male : 1985 Arrival Date: 05/22/2020 Time: 11:49 Bed 13 Private MD: ED Physician David Lancaster HPI: 05/22 12:41 This 35 yrs old Male presents to ER via Ambulatory with complaints of Thinks jmm he was Poisoned. 12:41 Onset: The symptoms/episode began/occurred acutely, just prior to arrival. The patient jmjimmie has not experienced similar symptoms in the past. This is a 35 year old male with a history of anxiety, add/adhd that presents to the ED with complaints of anxiety, shortness of breath beginning after smoking what he assumed was methamphetamine. . Historical: - Allergies: 12:12 PENICILLINS; ss - PMHx: 12:12 ADD/ADHD; Anxiety; chronic back pain; ss - PSHx: 12:12 None; ss - Immunization history:: Adult Immunizations unknown. - Social history:: Smoking status: Patient denies any tobacco usage or history of. Patient uses street drugs, Methamphetamine (Meth). ROS: 12:41 Constitutional: Negative for fever, chills, and weight loss, Cardiovascular: Negative [facility] for chest pain, palpitations, and edema. 12:41 Respiratory: Positive for shortness of breath. 12:41 Abdomen/GI: Positive for abdominal pain. 12:41 All other systems are negative. Exam: 12:41 Head/Face: atraumatic. Eyes: EOMI, no conjunctival erythema appreciated ENT: Moist [facility] Mucus Membranes Neck: Trachea midline, Supple Chest/axilla: Normal chest wall appearance and motion. Cardiovascular: Regular rate and rhythm. No edema appreciated Respiratory: Normal respirations, no respiratory distress appreciated Abdomen/GI: Non distended, soft Back: Normal ROM Skin: General appearance color normal MS/ Extremity: Moves all extremities, no obvious deformities appreciated, no edema noted to the lower extremities Neuro: Awake and alert, normal gait Psych: Behavior is normal, Mood is normal, Patient is cooperative and pleasant 12:41 Constitutional: The patient appears alert, awake, anxious, uncomfortable. 17:04 ECG was reviewed by the Attending Physician. [facility] Vital Signs: 12:08 BP 162 / 111; Pulse 135; Resp 20; Temp 98.5(TE); Pulse Ox 100% on R/A; Weight 90.72 kg; ss Height 6 ft. 0 in. (182.88 cm); Pain 0/10; 13:24 BP 152 / 104; Pulse 115; Resp 18; Pulse Ox 100% ; ll1 14:15 BP 141 / 94; Pulse 102; Resp 18; Pulse Ox 100% ; ll1 15:03 BP 141 / 94; Pulse 98; Resp 18; Pulse Ox 100% ; ll1 16:16 BP 148 / 100; Pulse 95; Resp 18; Pulse Ox 100% ; ll1 12:08 Body Mass Index 27.12 (90.72 kg, 182.88 cm) MDM: 12:41 Patient medically screened. [facility] 05/22 12:44 Order name: Acetaminophen [facility] 05/22 12:44 Order name: Basic Metabolic Panel; Complete Time: 14:11 [facility] 05/22 12:44 Order name: CBC with Diff; Complete Time: 14:11 [facility] 05/22 12:44 Order name: ETOH Level; Complete Time: 14:11 [facility] 05/22 12:44 Order name: Hepatic Function; Complete Time: 14:11 [facility] 05/22 12:44 Order name: PT-INR; Complete Time: 14:11 [facility] 05/22 12:44 Order name: Ptt, Activated; Complete Time: 14:11 [facility] 05/22 12:44 Order name: Salicylate; Complete Time: 14:11 [facility] 05/22 12:45 Order name: Acetaminophen Level; Complete Time: 14:11 [facility] 05/22 14:33 Order name: Chest Single View XRAY; Complete Time: 15:25 [facility] 05/22 12:44 Order name: EKG; Complete Time: 12:45 [facility] 05/22 12:44 Order name: EKG - Nurse/Tech; Complete Time: 15:11 [facility] 05/22 12:44 Order name: IV Saline Lock; Complete Time: 13:09 [facility] 05/22 12:44 Order name: Labs collected and sent; Complete Time: 13:09 [facility] EC:04 Rate is 112 beats/min. Rhythm is regular. QRS [place] is Normal. [place] interval is normal. [facility] QRS interval is normal. QT interval is normal. No Q waves. T waves are Normal. Reviewed by me. Administered Medications: 13:09 Drug: NS 0.9% 1000 ml Route: IV; Rate: 1 bolus; Site: right antecubital; ss 14:10 Follow up: Response: No adverse reaction; RASS: Alert and Calm (0); IV Status: ll1 Completed infusion; IV Intake: 1000ml 13:23 Drug: Xopenex (3) 1.25 mg Route: Inhalation; ll1 15:11 Follow up: Response: No adverse reaction; RASS: Alert and Calm (0) ll1 15:11 Drug: Ativan 1 mg Route: IVP; Site: right antecubital; ll1 16:37 Follow up: Response: No adverse reaction; RASS: Alert and Calm (0) ll1 15:11 Drug: NS 0.9% 1000 ml Route: IV; Rate: 1 bolus; Site: right antecubital; ll1 16:38 Follow up: Response: No adverse reaction; RASS: Alert and Calm (0); IV Status: ll1 Completed infusion; IV Intake: 1000ml Disposition: 05/22/20 16:42 Patient left the facility after being seen by provider. - Patient left due to unknown. Addendum: 05/24/2020 18:51 Co-signature as Attending Physician, David Lancaster MD I agree with the assessment and k dr plan of care. Signatures: Dispatcher [employer] EDMS David Lancaster MD MD kdr Mickail, Joel, PA PA jmm Smirch, Shelby, RN RN ss Lewis, Lynsay, RN RN ll1 Corrections: (The following items were deleted from the chart) 05/22 16:38 12:44 Urine Dipstick-Ancillary ordered. pedro 1
== END 2020-05-22 16:42 | disposition left against medical advice (07) ==
LOC: ER 11:46
DX: R06.02 Shortness of breath (principal); R10.9 Unspecified abdominal pain; F41.9 Anxiety disorder, unspecified; F15.90 Other stimulant use, unspecified, uncomplicated; Z88.0 Allergy status to penicillin
CPT/HCPCS: 36415; 71045; 80048; 80076; 80320; 80329; 85025; 85610; 85730; 93005; 96361; 96374; 99285; J7030